=== PATIENT | female | born 1930 | race Caucasian/White ===

== ENCOUNTER 2018-04-04 18:04 | Emergency (ER) | payer MEDICARE ==
[2018-04-04 19:14] LABS: #Eosinphils 0.1 thou/uL (0.0-0.7); #Lymphocytes 1.7 thou/uL (1.20-3.40); #Monocytes 0.5 thou/uL (0.11-0.59); #Neutrophils 3.5 thou/uL (1.40-6.50); %Basophils 0.7 % (0.0-1.0); %Eosinophils 0.9 % (0.0-10.0); %Lymphocytes 29.1 % (21.0-51.0); %Monocytes 8.1 % (0.0-10.0); %Neutrophils 61.2 % (42.0-75.0); Hemoglobin 12.6 g/dL (12.0-16.0); Mean Corpuscular HGB CONC 32.5 g/dL (32.0-36.0); Mean Corpuscular Hemoglobin 31.1 pg (27.0-31.0); Mean Corpuscular Volume 95.6 fL (78.0-98.0); Mean Platelet Volume 7.6 fL (7.4-10.4); Platelet Count 253 thou/uL (130-400); RBC Distribution Width 12.4 % (11.5-14.5); Red Blood Cell (RBC) Count 4.07 mill/uL (4.20-5.40); White Blood Cell (WBC) Count 5.8 thou/uL (4.8-10.8)
[2018-04-04 19:26] LABS: PTT 28.7 SEC (22.9-36.1); Prothrombin Time 13.2 SEC (12.0-14.7)
[2018-04-04 19:39] LABS: ALT (SGPT) 8 U/L (8-55); AST (SGOT) 14 U/L (5-34); Albumin 3.7 g/dL (3.4-4.8); Alkaline Phosphatase 45 U/L (40-150); Anion Gap 12 mmol/L (10-20); BUN (Urea Nitrogen) 23 mg/dL (9.8-20.1); Bilirubin, Total 0.4 mg/dL (0.2-1.2); Calc. Creatinine Clearance 0 mL/min (70-130); Calcium 9.3 mg/dL (7.8-10.44); Carbon Dioxide 27 mmol/L (23-31); Chloride 106 mmol/L (98-107); Estimated GFR-MDRD 38; Globulin 2.8 g/dL (2.4-3.5); Glucose 105 mg/dL (83-110); Potassium 4.7 mmol/L (3.5-5.1); Protein, Total 6.5 g/dL (6.0-8.3); Sodium 140 mmol/L (136-145)
[2018-04-04 19:44] LABS: CKMB 1.4 ng/mL (0-6.6); Troponin I Less than 0.010 ng/mL (< 0.028)
[2018-04-04 20:12] LABS: Bilirubin Negative (Negative); Blood, Urine Negative (Negative); Clarity CLEAR (Clear); Glucose, Urine (Dipstick) Negative (Negative); Leukocyte Moderate (Negative); Nitrite Negative (Negative); Protein, Urine (Dipstick) Negative (Neg-Trace); Specific Gravity, Urine 1.016 (1.002-1.036); pH, Urine 6.5 (5.0-9.0)
[2018-04-04 20:13] LABS: Bacteria/HPF None Seen HPF (None Seen); Hyaline Casts/LPF 0-3 HYALINE CAST LPF (0-3 Hyaline); Pathc Cast-AUWi Flag 0.29 (0-2.49); RBC/HPF 0-3 HPF (0-3); Squamous Epithelial 0-3 HPF (0-3)
--- NOTE | 2018-04-04 20:34 | CT ---
CT OF HEAD NONCONTRAST: 04/04/18 HISTORY: Posttraumatic injury with pain related to fall. FINDINGS: No evidence of acute intracranial hemorrhage, mass effect, midline shift or ventriculomegaly. There i s mild chronic ischemic disease of the cerebral white matter. Calvarium is intact. There is hyperosto sis frontalis interna. IMPRESSION: No acute intracranial hemorrhage or mass effect. POS: LENNOXK
--- NOTE | 2018-04-04 20:39 | CT ---
FACIAL BONE CT NONCONTRAST: 04/04/18 INDICATION: Fall with facial injury. FINDINGS: There is a minimally displaced fracture deformity of the nasal bones bilaterally. Zygomatic arches ar e intact. No displaced fracture of right orbital crawford. There is mild dehiscence involving medial wal l of the left orbit which appears chronic given absence of extraconal fat stranding. There is also a focal defect of the floor of the left orbit without associated extraconal fat stranding. The fracture margins appear corticated. This could relate to a remote injury. Recommend clinical correlation in t his regard (exclude point tenderness at the left orbital floor with physical exam). There is no retro bulbar hematoma or mass effect. [place] intraocular lenses are absent. There is no posttraumatic sublu xation of either temporomandibular joint. 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 Pterygoid plates are intact. IMPRESSION: 1. Minimally displaced nasal bone fractures. 2. Deformities of the left orbital rim, as described above. Correlate clinically. POS: SOCRATES
--- NOTE | 2018-04-04 20:41 | CT ---
CERVICAL SPINE CT NONCONTRAST: 04/04/18 INDICATION: Fall with neck injury and pain. FINDINGS: The craniocervical junction reveals no evidence of acute distraction injury. There is multilevel dege nerative change without acute fracture. There is mild reversal of normal cervical curvature, likely d egenerative. Contents of vertebral canal limit assessment by noncontrast CT imaging. IMPRESSION: Multilevel degenerative change cervical spine without an acute fracture visualized. POS: SOCRATES
== END 2018-04-04 20:38 | disposition home or self-care (01) ==
LOC: ERS 18:04
DX: S02.2XXA Fracture of nasal bones, initial encounter for closed fracture (principal); S00.83XA Contusion of other part of head, initial encounter; N39.0 Urinary tract infection, site not specified; I10 Essential (primary) hypertension; E03.9 Hypothyroidism, unspecified; F41.9 Anxiety disorder, unspecified; F32.9 Major depressive disorder, single episode, unspecified; F03.90 Unspecified dementia, unspecified severity, without behavioral disturbance, psychotic disturbance, mood disturbance, and anxiety; R29.6 Repeated falls; Z79.899 Other long term (current) drug therapy; Z79.82 Long term (current) use of aspirin; W18.30XA Fall on same level, unspecified, initial encounter
CPT/HCPCS: 36415; 70450; 70486; 72125; 80053; 81003; 81015; 82553; 84484; 85025; 85610; 85730; 87086; 93005

== ENCOUNTER 2018-07-17 12:57 | Emergency (ER) | payer MEDICARE ==
[2018-07-17 13:37] LABS: Bilirubin Moderate (Negative); Blood, Urine Negative (Negative); Clarity CLEAR (Clear); Glucose, Urine (Dipstick) Negative (Negative); Leukocyte Small (Negative); Nitrite Negative (Negative); Protein, Urine (Dipstick) Trace mg/dL (Neg-Trace); Specific Gravity, Urine 1.035 (1.002-1.036); pH, Urine 5.5 (5.0-9.0)
[2018-07-17 13:40] LABS: #Eosinphils 0.1 thou/uL (0.0-0.7); #Monocytes 0.9 thou/uL (0.11-0.59); #Neutrophils 6.2 thou/uL (1.40-6.50); %Basophils 0.3 % (0.0-1.0); %Eosinophils 0.9 % (0.0-10.0); %Lymphocytes 21.9 % (21.0-51.0); %Monocytes 9.3 % (0.0-10.0); %Neutrophils 67.6 % (42.0-75.0); Hemoglobin 13.2 g/dL (12.0-16.0); Mean Corpuscular HGB CONC 32.6 g/dL (32.0-36.0); Mean Corpuscular Hemoglobin 32.4 pg (27.0-31.0); Mean Corpuscular Volume 99.4 fL (78.0-98.0); Mean Platelet Volume 8.4 fL (7.4-10.4); Platelet Count 210 thou/uL (130-400); RBC Distribution Width 11.8 % (11.5-14.5); Red Blood Cell (RBC) Count 4.08 mill/uL (4.20-5.40); White Blood Cell (WBC) Count 9.2 thou/uL (4.8-10.8)
[2018-07-17 13:40] LABS: Bacteria/HPF None Seen HPF (None Seen); RBC/HPF 0-3 HPF (0-3)
[2018-07-17 13:59] LABS: Hyaline Casts/LPF 4-6 HYALINE CAST LPF (0-3 Hyaline); Manual Microscopic Reviewed? No Path Casts Seen; Renal Epithelial None Seen HPF (0-3); Transitional Epithelial NONE SEEN HPF (0-3)
[2018-07-17 14:00] LABS: ALT (SGPT) Less than 7 U/L (8-55); AST (SGOT) 13 U/L (5-34); Albumin 3.7 g/dL (3.4-4.8); Alkaline Phosphatase 52 U/L (40-150); Anion Gap 10 mmol/L (10-20); BUN (Urea Nitrogen) 24 mg/dL (9.8-20.1); Bilirubin, Total 0.3 mg/dL (0.2-1.2); Calc. Creatinine Clearance 0 mL/min (70-130); Calcium 9.7 mg/dL (7.8-10.44); Carbon Dioxide 31 mmol/L (23-31); Chloride 104 mmol/L (98-107); Estimated GFR-MDRD 37; Glucose 84 mg/dL (83-110); Potassium 4.3 mmol/L (3.5-5.1); Protein, Total 6.7 g/dL (6.0-8.3); Sodium 141 mmol/L (136-145)
--- NOTE | 2018-07-17 15:00 | RAD ---
PORTABLE CHEST: DATE: 07/17/2018. PROVIDED CLINICAL HISTORY: Cough. FINDINGS: Comparison 06/10/2011. The cardiac silhouette is within normal limits. Vascular calcification is see n. Median sternotomy changes are noted. Left subclavian cardiac pacing device is demonstrated with the tips overlying expected locations of RA and RV. There is a linear probably metallic density over lying the central aspects of the base of the neck and sternal region presumably external to the patie nt. No focal consolidation, pleural fluid, or pneumothorax apparent. IMPRESSION: No definite evidence for an acute cardiopulmonary process. POS: TPC
[2018-07-17] MEDS ORDERED: Azithromycin 500 MG VIAL ONE (15:27)
== END 2018-07-17 17:07 | disposition home or self-care (01) ==
LOC: ERS 12:57
DX: J20.9 Acute bronchitis, unspecified (principal); I10 Essential (primary) hypertension; E03.9 Hypothyroidism, unspecified; F41.9 Anxiety disorder, unspecified; F32.9 Major depressive disorder, single episode, unspecified; Z79.899 Other long term (current) drug therapy; Z79.891 Long term (current) use of opiate analgesic; Z79.82 Long term (current) use of aspirin
CPT/HCPCS: 51701; 71045; 80053; 81003; 81015; 85025; 87086; 93005; 94640; 96365; A4353; J0456; J7620

== ENCOUNTER 2018-07-27 09:43 | Inpatient (IN) | payer MEDICARE ==
[2018-07-27 10:36] LABS: #Lymphocytes 1.8 thou/uL (1.20-3.40); #Monocytes 0.5 thou/uL (0.11-0.59); %Basophils 0.1 % (0.0-1.0); %Eosinophils 0.6 % (0.0-10.0); %Lymphocytes 28.1 % (21.0-51.0); %Neutrophils 63.2 % (42.0-75.0); Hemoglobin 13.9 g/dL (12.0-16.0); Mean Corpuscular HGB CONC 32.2 g/dL (32.0-36.0); Mean Corpuscular Hemoglobin 31.2 pg (27.0-31.0); Mean Corpuscular Volume 96.8 fL (78.0-98.0); Mean Platelet Volume 8.2 fL (7.4-10.4); Platelet Count 222 thou/uL (130-400); RBC Distribution Width 11.9 % (11.5-14.5); Red Blood Cell (RBC) Count 4.47 mill/uL (4.20-5.40); White Blood Cell (WBC) Count 6.3 thou/uL (4.8-10.8)
--- NOTE | 2018-07-27 10:43 | RAD ---
PORTABLE CHEST 1 VIEW: Date; 07/27/18 Time: 0937 hours HISTORY: Chest pain. FINDINGS: Comparison made with exam of 07/17/18. The heart size is normal. Changes of median sternotomy are again seen. Left-sided pacemaker device re asa in place. The lungs are well expanded without focal areas of consolidation, pneumothoraces, or pleural effusions. IMPRESSION: No radiographic evidence of acute cardiopulmonary process. POS: STACIAH
[2018-07-27 11:04] LABS: ALT (SGPT) 12 U/L (8-55); AST (SGOT) 27 U/L (5-34); Albumin 3.7 g/dL (3.4-4.8); Alkaline Phosphatase 47 U/L (40-150); Anion Gap 17 mmol/L (10-20); BUN (Urea Nitrogen) 22 mg/dL (9.8-20.1); Bilirubin, Total 0.3 mg/dL (0.2-1.2); Calc. Creatinine Clearance 0 mL/min (70-130); Calcium 9.5 mg/dL (7.8-10.44); Carbon Dioxide 23 mmol/L (23-31); Chloride 102 mmol/L (98-107); Estimated GFR-MDRD 51; Globulin 2.8 g/dL (2.4-3.5); Glucose 97 mg/dL (83-110); Protein, Total 6.5 g/dL (6.0-8.3); Sodium 137 mmol/L (136-145)
--- NOTE | 2018-07-27 11:06 | CT ---
CT BRAIN WITHOUT CONTRAST: Date: 07/27/18 HISTORY: Headache. Dizziness. FINDINGS: Comparison made with exam of 04/04/18. Changes of mild chronic small vessel ischemic disease are again seen. The ventricular size is stable and the basilar cisterns are patent. No evidence of acute infarct, hemorrhage, midline shift, or abno rmal extra-axial fluid collections are seen. The bony calvarium is intact. Changes of hyperostosis fr ontalis interna are again seen. The visualized paranasal sinuses and mastoid air cells are well aerat ed. IMPRESSION: No CT evidence of acute intracranial process. POS: H
--- NOTE | 2018-07-27 11:15 | CT ---
CT ANGIO OF CHEST AND ABDOMEN PERFORMED WITH IV CONTRAST ENHANCEMENT AND 3D RECONSTRUCTIONS: Date: 07/27/18 HISTORY: Chest pain, onset this morning. This examination was done per the aortic dissection protocol. FINDINGS: The lungs are clear of any infiltrative process. There are no pleural effusions noted. There are mini mal atelectatic changes in the lung bases. There is no significant mediastinal, hilar, or axillary adenopathy noted. The thoracic aorta shows atherosclerotic change. There is no aneurysm or dissection. Postop sternotom y changes are present. CT angio of abdomen was performed with contrast. The liver, spleen, and pancreas regions appear unrem arkable. Gallbladder is not identified. Right and left adrenal glands are normal in appearance. The right kidney is normal in size. The left kidney is atrophic, measuring approximately 6.4 cm in length. There is cortical scarring involving th e upper pole. There are hypodensities involving both kidneys, most of which are too small to characte rize. There is one exophytic lesion involving the left kidney measuring 2.[address] Hounsfield unit number is higher than typical for a simple cyst, but could represent a hemorrhagic cyst. There is no significant periaortic or mesenteric adenopathy. The abdominal aorta shows atheroscleroti c change. There is some minimal ectasia to the more distal aorta, but is not aneurysmal. No dissectio n. There is a moderately severe stenosis of the origin of the right renal artery. There is dense plaq ue formation and stent noted on the left side. Review of osseous structures show arthritic changes of the spine. There is some loss of vertebral bod y height of some of the mid thoracic vertebral bodies, probably on the basis of osteoporosis. IMPRESSION: 1. No evidence of aortic aneurysm or dissection. 2. Moderately severe stenosis of the right renal artery. 3. Moderate atrophy of the left kidney. There is a left renal artery stent in place. 4. Hypodensities involving both kidneys, most of which are too small to characterize. There is sone larger exophytic lesion along the posterior cortex of the atrophic left kidney measuring 2.2 cm[address] It h as CT Hounsfield unit numbers higher than typical for a cyst, although this may still represent a hem orrhagic cyst. Ultrasound may be helpful in characterization. 5. Minimal left-sided colonic diverticulosis. POS: TPC
[2018-07-27] MEDS ORDERED: Nitroglycerin 2% Ointment 1 INCH/1 GM Packet ONE (11:52)
[2018-07-27] MEDS ORDERED: ISOVUE-370 76%-LOCM 1 ML ONE (12:03)
[2018-07-27 12:07] LABS: Bilirubin Small (Negative); Blood, Urine Trace (Negative); Clarity CLEAR (Clear); Glucose, Urine (Dipstick) Negative (Negative); Leukocyte Small (Negative); Nitrite Negative (Negative); Protein, Urine (Dipstick) Negative (Neg-Trace); Urobilinogen 0.2 mg/dL (0.2-1.0)
[2018-07-27 12:09] LABS: Bacteria/HPF 4+ HPF (None Seen); Hyaline Casts/LPF 4-6 HYALINE CAST LPF (0-3 Hyaline); Pathc Cast-AUWi Flag 0.27 (0-2.49); Squamous Epithelial 0-3 HPF (0-3)
[2018-07-27 12:10] LABS: Specific Gravity, Urine 1.059 (1.002-1.036)
[2018-07-27] MEDS ORDERED: cefTRIAXone\\ROCEPHIN 1 GM VIAL ONE (12:29)
[2018-07-27] MEDS ORDERED: Amiodarone 450 MG, Admixture Fee 1 EACH in Dextrose 5% in Water 250 ML IVPB SCH (13:30)
[2018-07-27] MEDS ORDERED: Amiodarone 150 MG/3 ML VIAL IVP SCH (13:30)
[2018-07-27] MEDS ORDERED: Amiodarone 150 MG/3 ML VIAL ONE (13:42)
--- NOTE | 2018-07-27 16:50 | HP ---
PRIMARY CARE PROVIDER: Cruz Esquivel MD. COMPLAINT: Chest pain and altered mental status. HISTORY OF PRESENT ILLNESS: This is an 88-year-old female, who presents to [facility] Emergency Department with her son, who provides the majority of the history as the patient has advancing dementia and confusion. The son reports that he has noticed his mother with increasing confusion and worsening dementia over the last several days. The patient also has been noted with decreased ambulation, general weakness, and decreased appetite. The patient states she has had some intermittent chest pain symptoms in the center of her chest, sharp in nature, intermittent with some dizziness. The family reports that the patient has had difficulty ambulating and is supposed to use a rolling walker, however, is noncompliant with this and has had intermittent falls. The patient typically is in her bed or in a chair most of the day and needs assistance with short distance ambulation and meal preparation. The patient was recently evaluated by her primary care provider and apparently had an increase in her levothyroxine dosing as well as the addition of albuterol inhaler. The patient overall has been compliant with her chronic medication regimen per family report. The family reports the patient has had the pacemaker device in place over the last 10 to 15 years and had the generator replaced in the last 2 years. Per family report, the device has been working appropriately when checked at varying intervals. The patient currently denies any nausea, vomiting, or diarrhea. The patient denies any unilateral weakness. The patient does admit that she is currently wishing to eat. In the emergency room, the patient underwent general evaluation including metabolic survey showing essentially negative findings. Urinalysis was positive for suspected urinary tract infection. At which point, the patient received IV Rocephin 1 g and transdermal nitroglycerin. During the ER evaluation, telemetry monitoring showed nonsustained short run of ventricular tachycardia, which the patient was unaware of. The patient was placed on IV amiodarone in the emergency room and currently remains in a paced rhythm. PAST MEDICAL HISTORY: 1. Hypothyroidism. 2. Hyperlipidemia. 3. Hypertension. 4. Sick sinus syndrome. 5. Coronary artery disease. 6. Deconditioning. 7. History of falls. 8. Dementia, likely Alzheimer's type. PAST SURGICAL HISTORY: 1. Status post pacemaker placement with generator change two years prior to this evaluation. 2. Status post hysterectomy. 3. Status post coronary artery bypass. CURRENT MEDICATIONS: 1. Levothyroxine. 2. Alprazolam. 3. Pravachol. 4. Amlodipine. 5. Divalproex. 6. Donepezil, doses need to be confirmed with family members. ALLERGIES: CODEINE, SULFATE, AND FLUCONAZOLE. FAMILY HISTORY: Positive for coronary artery disease and hypertension. SOCIAL HISTORY: The patient is and accompanied by her son and grandson in the emergency department. No current alcohol, tobacco, or illicit drug use. Minimally ambulatory with occasional use of a rolling walker. History of falls. REVIEW OF SYSTEMS: CONSTITUTIONAL: Negative for weight loss or gain, ability to conduct usual activities. SKIN: Negative for rash, itching. EYES: Negative for double vision, pain. ENT/MOUTH: Negative for nose bleeding, neck stiffness, pain, tenderness. CARDIOVASCULAR: Negative for palpitations, dyspnea on exertion, orthopnea. RESPIRATORY: Negative for shortness of breath, wheezing, cough, hemoptysis, fever or night sweats. GASTROINTESTINAL: Negative for poor appetite, abdominal pain, heartburn, nausea, vomiting, constipation, or diarrhea. GENITOURINARY: Negative for urgency, frequency, dysuria, nocturia. MUSCULOSKELETAL: Negative for pain, swelling. NEUROLOGIC/PSYCHIATRIC: Negative for anxiety, depression. ALLERGY/IMMUNOLOGIC: Negative for skin rash, bleeding tendency. Otherwise, negative except as stated per HPI. PHYSICAL EXAMINATION: VITAL SIGNS: On admission, blood pressure 188/77, pulse 71, respiratory rate is 14, temperature 97.6 degrees Fahrenheit, and O2 saturation 99% on room air. GENERAL APPEARANCE: This is an 88-year-old female, alert and oriented x2, pleasant, smiling, in no acute distress. HEENT: Pupils are equal, round, reactive to light and accommodation. Extraocular muscles are intact. No scleral icterus. No conjunctival injection. Nares patent. OP is clear. Teeth in fair repair. NECK: Supple. No cervical adenopathy. No thyromegaly. No carotid bruits. No JVD appreciated. Cervical spine with full active and passive range of motion. No meningeal signs noted. CHEST: Lungs are clear to auscultation bilaterally CARDIOVASCULAR: S1 and S2 without noted murmur, rub, or gallop. Left upper chest wall with pacemaker device in place. No fluctuance or erythema noted. ABDOMEN: Obese, soft, nontender, and nondistended. Bowel sounds are positive in all 4 quadrants. No hepatosplenomegaly. No abdominal bruits. No rebound or guarding appreciated. EXTREMITIES: Warm and dry with fair turgor. No clubbing, cyanosis, or asymmetric edema appreciated. Pulses are palpable distally at the dorsalis pedis, posterior tibial, and popliteal arteries bilaterally. Capillary refill less than 2 seconds. NEUROLOGIC: Cranial nerves 2 through 12 are grossly intact. No focal or lateralizing signs appreciated. Alert and oriented x2. PERTINENT LABORATORY DATA AND X-RAY FINDINGS: Basic metabolic profile within normal limits. Troponin I negative x2. BNP 136. TSH 2.47. CBC within normal limits. Portable chest x-ray dated 07/27/2018, showed no acute cardiopulmonary process. CT of the brain without contrast dated 07/27/2018, showed no acute intracranial process. CT of the chest and abdomen with dissection protocol showed no evidence for aneurysm or dissection. Moderately severe stenosis of the right renal artery. Moderate atrophy of the left kidney. EKG dated 07/27/2018, showed paced rhythm with heart rate in the 70s. ASSESSMENT AND PLAN: 1. Urinary tract infection. The patient will be admitted to the telemetry unit. We will continue Rocephin 2 g IV q.24 hours. Urine culture pending. Continue IV fluids with normal saline at 100 mL/h. 2. Acute metabolic encephalopathy secondary to urinary tract infection. We will continue supportive management as outlined at #1. Reorientation techniques. Anticipate improvement with resolution of infectious process. 3. Nonsustained ventricular tachycardia. We will continue amiodarone IV currently. Consult Cardiology Service for any further recommendations and medication titration. Check magnesium level and 2D transthoracic echocardiogram in the a.m. 4. Dementia likely Alzheimer's type. We will continue general supportive management. Reorientation techniques. Sitter for one-on-one if family unavailable. Resume donepezil. 5. Deconditioning. We will obtain PT evaluation for functional assessment. General fall risk precautions. [facility] facility options. 6. Prophylaxis. SCDs while in bed. Pepcid 20 mg p.o. b.i.d. General fall risk precautions. 7. Code status is full. Surrogate medical decision maker is the patient's son. Job ID: [id number]
[2018-07-27 17:11] LABS: Troponin I Less than 0.010 ng/mL (< 0.028)
[2018-07-27] MEDS ORDERED: Ondansetron PF 4 MG/2 ML Vial IVP PRN (19:56)
[2018-07-27] MEDS ORDERED: Ondansetron ODT 4 MG TAB PO PRN (19:56)
[2018-07-27] MEDS: Famotidine 20 MG TAB PO SCH (21:46)
[2018-07-27] MEDS: Sodium Chloride 0.9% 1,000 ML IV SCH (21:47)
[2018-07-27 21:53] VITALS: BMI 32.3
[2018-07-27] MEDS ORDERED: Donepezil HCl 10 MG TAB PO SCH (23:00)
[2018-07-27] MEDS ORDERED: Pravastatin Sodium 20 MG TAB PO SCH (23:00)
[2018-07-27] MEDS: ALPRAZolam 0.25 MG TAB PO PRN (23:46)
[2018-07-28] MEDS: Levothyroxine Sodium 50 MCG TAB PO SCH (05:51)
[2018-07-28 06:11] LABS: ALT (SGPT) 8 U/L (8-55); AST (SGOT) 14 U/L (5-34); Albumin 3.3 g/dL (3.4-4.8); Alkaline Phosphatase 44 U/L (40-150); Anion Gap 10 mmol/L (10-20); BUN (Urea Nitrogen) 20 mg/dL (9.8-20.1); Bilirubin, Total 0.3 mg/dL (0.2-1.2); Calc. Creatinine Clearance 65 mL/min (70-130); Calcium 8.9 mg/dL (7.8-10.44); Carbon Dioxide 29 mmol/L (23-31); Chloride 104 mmol/L (98-107); Estimated GFR-MDRD 58; Globulin 2.3 g/dL (2.4-3.5); Glucose 91 mg/dL (83-110); Magnesium 1.9 mg/dL (1.6-2.6); Potassium 4.2 mmol/L (3.5-5.1); Protein, Total 5.6 g/dL (6.0-8.3); Sodium 139 mmol/L (136-145)
[2018-07-28 06:33] LABS: Band 4 % (5-11); Hemoglobin 12.6 g/dL (12.0-16.0); Lymphocytes 24 % (21-51); MDiff Complete? YES; Mean Corpuscular HGB CONC 33.1 g/dL (32.0-36.0); Mean Corpuscular Hemoglobin 31.9 pg (27.0-31.0); Mean Corpuscular Volume 96.6 fL (78.0-98.0); Mean Platelet Volume 8.4 fL (7.4-10.4); Monocytes 3 % (0-10); Neutrophil 69 % (42-75); Platelet Count 186 thou/uL (130-400); Red Blood Cell (RBC) Count 3.95 mill/uL (4.20-5.40); White Blood Cell (WBC) Count 8.5 thou/uL (4.8-10.8)
[2018-07-28] MEDS: Famotidine 20 MG TAB PO SCH ×2 (09:55→19:49)
[2018-07-28] MEDS: Amlodipine 5 MG TAB PO SCH (09:55)
[2018-07-28] MEDS: Sodium Chloride 0.9% 1,000 ML IV SCH (09:55)
[2018-07-28] MEDS: Acetaminophen 500 MG TAB PO PRN (09:55)
--- NOTE | 2018-07-28 13:44 | CON ---
DATE OF CONSULTATION: HISTORY OF PRESENT ILLNESS: The patient is an 88-year-old woman, who presented with altered mental status. The patient has a long history of coronary artery disease. She is status post coronary bypass graft surgery in 2007. She also has had placement of electronic pacemaker. The patient suffers from dementia. She was admitted apparently with altered mental status. She was noted to have a rapid heart rate on her telemetry monitoring. The patient denies having any chest discomfort or palpitations. PAST MEDICAL HISTORY: 1. Coronary artery disease. 2. Hypertension. 3. Dyslipidemia. 4. Dementia. PAST SURGICAL HISTORY: Hysterectomy and coronary artery bypass surgery. MEDICATIONS: See nursing list. ALLERGIES: CODEINE, SULFATE, AND FLUCONAZOLE. SOCIAL HISTORY: Lives with her son. REVIEW OF SYSTEMS: Unremarkable. PHYSICAL EXAMINATION: GENERAL: Well-developed, obese woman, alert, and oriented x1. VITAL SIGNS: Blood pressure of 146/65. NECK: Showed no jugular venous distention. LUNGS: Clear to auscultation. HEART: Regular rate and rhythm. Normal S1 and S2 with a 2/6 systolic murmur. ABDOMEN: Distended. EXTREMITIES: Showed trace edema. LABORATORY DATA: Sodium 139, potassium 4.2, chloride 104, bicarbonate 29, BUN 20, creatinine 0.91. Troponin less than 0.01. BNP 135. White blood cell count 8.5 , hemoglobin 12.6, hematocrit 38.2, and platelets 186. EKG revealed an electronic atrial pacemaker with no acute ST-T wave changes. Telemetry monitoring revealed a wide pacemaker mediated tachycardia. IMPRESSION: 1. Altered mental status. 2. Possible pacemaker mediated tachycardia. 3. History of coronary artery bypass surgery. 4. Hypertension. 5. Dementia. 6. History of renal artery stenosis. PLAN: This patient presented with altered mental status. From a cardiac standpoint, I do not believe this is ventricular tachycardia. We will interrogate the patient's pacemaker. We will discontinue the amiodarone. We will follow this patient with you through her hospitalization. Job ID: [id number] [facility]
[2018-07-28] MEDS: cefTRIAXone\\ROCEPHIN 2 GM in Sodium Chloride 0.9% 100 ML IVPB SCH (15:07)
--- NOTE | 2018-07-28 15:42 | PDOC.PN ---
- Subjective Encounter Start Date: 07/28/18 Encounter Start Time: 15:40 Subjective: feels OK. denies any discomfort but just weak - Objective Resuscitation Status - Order Detail: 07/28/18 15:39 Resuscitation Status Routine Resuscitation Status: PRTL: Chem only Discussed with: as per palliative care team's discussion w son MAHESH Reviewed: Yes Vital Signs & Weight: Vital Signs (12 hours) Temp Pulse Pulse Resp BP BP BP 07/28/18 14:16 74 182/72 H 168/73 H 07/28/18 11:41 97.5 F L 73 16 146/65 H 07/28/18 08:00 97.5 F L 73 18 175/75 H 07/28/18 03:45 97.6 F 70 12 BP Pulse Ox 07/28/18 14:16 07/28/18 11:41 96 07/28/18 08:00 97 07/28/18 03:45 151/69 H 94 L Weight Weight 212 lb 9.6 oz I&O: 07/27/18 07/28/18 07/29/18 06:59 06:59 06:59 Intake Total 1381 Output Total 500 Balance 881 Result Diagrams: 07/28/18 05:21 07/28/18 05:21 Additional Labs: Microbiology 07/17/18 13:11 Urine Straight Catheter Urine Culture - Final Gram Negative [facility] Laboratory Tests 07/27/18 07/27/18 07/27/18 10:23 10:23 10:23 Troponin I 0.010 B-Natriuretic Peptide 135.8 H TSH 3rd Generation 2.4663 07/27/18 07/27/18 13:34 16:31 Troponin I 0.014 Less than 0.010 B-Natriuretic Peptide TSH 3rd Generation Phys Exam - Physical Examination Constitutional: NAD HEENT: PERRLA, moist MMs, sclera anicteric, oral pharynx no lesions Neck: no nodes, no JVD, supple, full ROM Respiratory: no wheezing, no rales, no rhonchi, clear to auscultation bilateral Cardiovascular: RRR, no significant murmur, no rub Gastrointestinal: soft, non-tender, no distention, positive bowel sounds Musculoskeletal: no edema, pulses present Neurological: non-focal, normal sensation, moves all 4 limbs Psychiatric: normal affect Deviation from normal: orineted to self and person Skin: no rash Dx/Plan (1) UTI (urinary tract infection) Status: Acute (2) Acute metabolic encephalopathy Code(s): G93.41 - METABOLIC ENCEPHALOPATHY Status: Acute Comment: due to #1 (3) NSVT (nonsustained ventricular tachycardia) Code(s): I47.2 - VENTRICULAR TACHYCARDIA Status: Resolved (4) Dementia Code(s): F03.90 - UNSPECIFIED DEMENTIA WITHOUT BEHAVIORAL DISTURBANCE Status: Chronic (5) CAD (coronary artery disease) Code(s): I25.10 - ATHSCL HEART DISEASE OF [place] CORONARY ARTERY W/O ANG PCTRS Status: Chronic (6) Pacemaker Code(s): Z95.0 - PRESENCE OF CARDIAC PACEMAKER Status: Chronic - Plan DVT proph w/SCDs stop amiodarone. no arrythmia.PPM interrogation -: cont ABx. Follow Cx results.IVF -: HD stable -: am labs * . Review of Systems - Review of Systems Constitutional: weakness. negative: fever, chills, sweats, malaise, other Respiratory: negative: Cough, Dry, Shortness of Breath, Hemoptysis, SOB with Excertion, Pleuritic Pain, Sputum, Wheezing Cardiovascular: negative: chest pain, palpitations, orthopnea, paroxysmal nocturnal dyspnea, edema, light headedness, other Gastrointestinal: negative: Nausea, Vomiting, Abdominal Pain, Diarrhea, Constipation, Melena, Hematochezia, Other Genitourinary: negative: Dysuria, Frequency, Incontinence, Hematuria, Retention , Other Neurological: negative: Weakness, Numbness, Incoordination, Change in Speech, Confusion, Seizures, Other - Medications/Allergies Allergies/Adverse Reactions: Allergies Allergy/AdvReac Type Severity Reaction Status Date / Time codeine Allergy Verified 07/27/18 13:22 fluconazole Allergy Verified 07/27/18 13:22 Medications: Current Medications Acetaminophen (Tylenol) 1,000 mg PO Q6H PRN PRN Reason: Mild Pain (1-3) Last Admin: 07/28/18 09:55 Dose: 1,000 mg Alprazolam (Xanax) 0.25 mg PO TID PRN PRN Reason: Anxiety Last Admin: 07/27/18 23:46 Dose: 0.25 mg Amlodipine Besylate (Norvasc) 5 mg PO DAILY CHUY Last Admin: 03/15/19 09:55 Dose: 5 mg Divalproex Sodium (Depakote Er) 500 mg PO HS [facility] Donepezil HCl (Aricept) 10 mg PO HS [facility] Famotidine (Pepcid) 20 mg PO BID [facility] Last Admin: 07/28/18 09:55 Dose: 20 mg Hydralazine HCl (Apresoline) 10 mg SLOW IVP Q4H PRN PRN Reason: SBP > 180 and HR < 70 Ceftriaxone Sodium 2 gm/ (Sodium Chloride) 100 mls @ 200 mls/hr IVPB 1300 [facility] Last Admin: 07/28/18 15:07 Dose: 100 mls Levothyroxine Sodium (Synthroid) 50 mcg PO 0600 [facility] Last Admin: 07/28/18 05:51 Dose: 50 mcg Ondansetron HCl (Zofran Odt) 4 mg PO Q6H PRN PRN Reason: Nausea/Vomiting Ondansetron HCl (Zofran) 4 mg IVP Q6H PRN PRN Reason: Nausea/Vomiting Pravastatin Sodium (Pravachol) 20 mg PO HS [facility] Sertraline HCl (Zoloft) 100 mg PO DAILY [facility] Last Admin: 07/28/18 09:55 Dose: 100 mg
[2018-07-28] MEDS ORDERED: Amlodipine 5 MG TAB PO SCH (15:43)
[2018-07-28] MEDS ORDERED: ALPRAZolam 0.25 MG TAB PO PRN (15:43)
[2018-07-28] MEDS: hydrALAZINE 20 MG/ML VIAL SLOW IVP PRN (16:10)
[2018-07-28] MEDS: Donepezil HCl 10 MG TAB PO SCH (19:49)
[2018-07-28] MEDS: Pravastatin Sodium 20 MG TAB PO SCH (19:49)
[2018-07-28] MEDS: ALPRAZolam 0.25 MG TAB PO PRN (20:53)
[2018-07-28] MEDS ORDERED: Pravastatin Sodium 20 MG TAB PO SCH (21:00)
[2018-07-28] MEDS ORDERED: Donepezil HCl 10 MG TAB PO SCH (21:00)
[2018-07-29] MEDS: Levothyroxine Sodium 50 MCG TAB PO SCH (05:23)
[2018-07-29 06:30] LABS: #Eosinphils 0.1 thou/uL (0.0-0.7); #Lymphocytes 2.4 thou/uL (1.20-3.40); #Monocytes 0.6 thou/uL (0.11-0.59); #Neutrophils 5.1 thou/uL (1.40-6.50); %Basophils 0.3 % (0.0-1.0); %Eosinophils 0.7 % (0.0-10.0); %Lymphocytes 29.2 % (21.0-51.0); %Monocytes 7.6 % (0.0-10.0); %Neutrophils 62.3 % (42.0-75.0); Hemoglobin 13.3 g/dL (12.0-16.0); Mean Corpuscular HGB CONC 32.7 g/dL (32.0-36.0); Mean Corpuscular Hemoglobin 31.8 pg (27.0-31.0); Mean Corpuscular Volume 97.2 fL (78.0-98.0); Mean Platelet Volume 8.4 fL (7.4-10.4); Platelet Count 205 thou/uL (130-400); RBC Distribution Width 12.3 % (11.5-14.5); Red Blood Cell (RBC) Count 4.17 mill/uL (4.20-5.40); White Blood Cell (WBC) Count 8.3 thou/uL (4.8-10.8)
[2018-07-29 06:48] LABS: Anion Gap 11 mmol/L (10-20); BUN (Urea Nitrogen) 15 mg/dL (9.8-20.1); Calc. Creatinine Clearance 61 mL/min (70-130); Calcium 9.1 mg/dL (7.8-10.44); Carbon Dioxide 27 mmol/L (23-31); Chloride 102 mmol/L (98-107); Estimated GFR-MDRD 54; Glucose 100 mg/dL (83-110); Potassium 3.9 mmol/L (3.5-5.1); Sodium 136 mmol/L (136-145)
[2018-07-29] MEDS ORDERED: Levothyroxine Sodium 50 MCG TAB PO SCH (09:00)
[2018-07-29] MEDS: Amlodipine 5 MG TAB PO SCH (09:48)
[2018-07-29] MEDS: Acetaminophen 500 MG TAB PO PRN (09:48)
[2018-07-29] MEDS: Famotidine 20 MG TAB PO SCH ×2 (09:48→19:44)
--- NOTE | 2018-07-29 11:50 | PDOC.PN ---
- Subjective Encounter Start Date: 07/29/18 Encounter Start Time: 10:48 Subjective: No new problem. Denied chest pain or dysuria -: Afebrile. - Objective Resuscitation Status - Order Detail: 07/28/18 15:39 Resuscitation Status Routine Resuscitation Status: PRTL: Chem only Discussed with: as per palliative care team's discussion w son Vital Signs & Weight: Vital Signs (12 hours) Temp Pulse Resp BP Pulse Ox 07/29/18 09:52 97.8 F 69 16 176/73 H 97 07/29/18 04:00 98.0 F 70 16 145/65 H 97 07/29/18 00:00 98.6 F 70 16 136/62 97 Weight Weight 212 lb 9.6 oz I&O: 07/28/18 07/29/18 07/30/18 06:59 06:59 06:59 Intake Total 1381 1870 Output Total 500 920 Balance 881 950 Result Diagrams: 07/29/18 06:19 07/29/18 06:19 Phys Exam - Physical Examination elderly female in no distress. afebrile. HEENT: PERRLA, moist MMs Neck: no JVD, supple Respiratory: no wheezing, no rales, no rhonchi, clear to auscultation bilateral Cardiovascular: RRR Gastrointestinal: soft, no distention, positive bowel sounds Musculoskeletal: no edema, pulses present Neurological: non-focal, moves all 4 limbs Conversation. memory lapses noted Deviation from normal: Oriented to person and place at least Dx/Plan (1) Hypothyroidism Code(s): E03.9 - HYPOTHYROIDISM, UNSPECIFIED Status: Acute (2) SSS (sick sinus syndrome) Code(s): I49.5 - SICK SINUS SYNDROME Status: Acute (3) Frequent falls Code(s): R29.6 - REPEATED FALLS Status: Acute (4) Physical deconditioning Code(s): R53.81 - OTHER [place] Status: Acute (5) Acute metabolic encephalopathy Code(s): G93.41 - METABOLIC ENCEPHALOPATHY Status: Acute Comment: due to #1 (6) UTI (urinary tract infection) Status: Acute (7) CAD (coronary artery disease) Code(s): I25.10 - ATHSCL HEART DISEASE OF [place] CORONARY ARTERY W/O ANG PCTRS Status: Chronic (8) Dementia Code(s): F03.90 - UNSPECIFIED DEMENTIA WITHOUT BEHAVIORAL DISTURBANCE Status: Chronic (9) NSVT (nonsustained ventricular tachycardia) Code(s): I47.2 - VENTRICULAR TACHYCARDIA Status: Resolved - Plan Continue IV antibiotics. -: continue other usual home medications -: Awaiting Echo report. -: cardiology following Re tachyarrhythmia -: Continue PT/OT. Case mgt consulted re discharge planning/placement * .
[2018-07-29] MEDS: cefTRIAXone\\ROCEPHIN 2 GM in Sodium Chloride 0.9% 100 ML IVPB SCH (13:11)
--- NOTE | 2018-07-29 16:35 | EKG ---
Test Reason : Blood Pressure : / mmHG Vent. Rate : 072 BPM Atrial Rate : 073 BPM P-R Int : 000 ms QRS Dur : 072 ms QT Int : 414 ms P-R-T Axes : 000 011 029 degrees QTc Int : 453 ms Electronic atrial pacemaker Confirmed by DENNY RAMIREZ DO ([id number]), web content editor ASAEL JUAREZ ([id number]) on 07/29/2018 4:34:41 PM Referred By: Confirmed By:DENNY RAMIREZ DO
--- NOTE | 2018-07-29 16:35 | EKG ---
Test Reason : Blood Pressure : / mmHG Vent. Rate : 070 BPM Atrial Rate : 070 BPM P-R Int : 124 ms QRS Dur : 080 ms QT Int : 440 ms P-R-T Axes : 008 023 036 degrees QTc Int : 475 ms Electronic atrial pacemaker Confirmed by DENNY RAMIREZ DO ([id number]), information clerk [employer] ASAEL JUAREZ ([id number]) on 07/29/2018 4:34:56 PM Referred By: Confirmed By:DENNY RAMIREZ DO
[2018-07-29] MEDS: hydrALAZINE 20 MG/ML VIAL SLOW IVP PRN (17:48)
[2018-07-29] MEDS: Donepezil HCl 10 MG TAB PO SCH (19:43)
[2018-07-29] MEDS: ALPRAZolam 0.25 MG TAB PO PRN (19:43)
[2018-07-29] MEDS: Pravastatin Sodium 20 MG TAB PO SCH (19:44)
[2018-07-30] MEDS: Levothyroxine Sodium 50 MCG TAB PO SCH (05:25)
[2018-07-30] MEDS: ALPRAZolam 0.25 MG TAB PO PRN ×2 (05:50→22:09)
[2018-07-30] MEDS: Famotidine 20 MG TAB PO SCH ×2 (08:30→22:05)
[2018-07-30] MEDS: Amlodipine 5 MG TAB PO SCH (08:31)
--- NOTE | 2018-07-30 10:05 | PDOC.PN ---
- Subjective Encounter Start Date: 07/30/18 Encounter Start Time: 10:03 Subjective: No new problem -: Son reported that patient is at baseline. -: No fever, chest pain, palpitation or dysuria - Objective Resuscitation Status - Order Detail: 07/28/18 15:39 Resuscitation Status Routine Resuscitation Status: PRTL: Chem only Discussed with: as per palliative care team's discussion w son Vital Signs & Weight: Vital Signs (12 hours) Temp Pulse Resp BP BP Pulse Ox 07/30/18 08:31 85 147/67 H 07/30/18 07:29 98.5 F 85 16 194/79 H 99 07/30/18 03:34 98.2 F 84 16 153/67 H 97 Weight Weight 212 lb 9.6 oz I&O: 07/29/18 07/30/18 07/31/18 06:59 06:59 06:59 Intake Total 1870 887 Output Total 920 520 Balance 950 367 Result Diagrams: 07/29/18 06:19 07/29/18 06:19 Phys Exam - Physical Examination obese female in no distress HEENT: PERRLA, moist MMs Neck: no JVD, supple Respiratory: no wheezing, no rhonchi, clear to auscultation bilateral Cardiovascular: RRR soft systolic murmur noted Gastrointestinal: soft, non-tender, no distention, positive bowel sounds obese Musculoskeletal: no edema Neurological: moves all 4 limbs memory lapses noted Psychiatric: A&O x 3 Dx/Plan (1) Hypothyroidism Code(s): E03.9 - HYPOTHYROIDISM, UNSPECIFIED Status: Acute (2) SSS (sick sinus syndrome) Code(s): I49.5 - SICK SINUS SYNDROME Status: Acute (3) Frequent falls Code(s): R29.6 - REPEATED FALLS Status: Acute (4) Physical deconditioning Code(s): R53.81 - OTHER MALAISE Status: Acute (5) Acute metabolic encephalopathy Code(s): G93.41 - METABOLIC ENCEPHALOPATHY Status: Acute Comment: due to #1 (6) UTI (urinary tract infection) Status: Acute (7) CAD (coronary artery disease) Code(s): I25.10 - ATHSCL HEART DISEASE OF [place] CORONARY ARTERY W/O ANG PCTRS Status: Chronic (8) Dementia Code(s): F03.90 - UNSPECIFIED DEMENTIA WITHOUT BEHAVIORAL DISTURBANCE Status: Chronic (9) NSVT (nonsustained ventricular tachycardia) Code(s): I47.2 - VENTRICULAR TACHYCARDIA Status: Resolved Comment: Cardiology does not think that the strip represented V tach. Echoshowed preserved EF. - Plan Continue current antibiotics. -: Son reported that he cannot take care of patient anymore. -: case mgt to help with SNF vs [employer] placement -: Continue PT/OT * .
[2018-07-30] MEDS: cefTRIAXone\\ROCEPHIN 2 GM in Sodium Chloride 0.9% 100 ML IVPB SCH (12:33)
[2018-07-30] MEDS: Pravastatin Sodium 20 MG TAB PO SCH (22:05)
[2018-07-30] MEDS: Donepezil HCl 10 MG TAB PO SCH (22:05)
[2018-07-31] MEDS: Levothyroxine Sodium 50 MCG TAB PO SCH (05:47)
[2018-07-31] MEDS ORDERED: Sodium Chloride 0.9% 10 ML ONE ×2 (09:22→13:15)
[2018-07-31] MEDS: Amlodipine 10 MG TAB PO SCH (10:11)
[2018-07-31] MEDS: Famotidine 20 MG TAB PO SCH ×2 (10:11→21:36)
[2018-07-31] MEDS: cefTRIAXone\\ROCEPHIN 2 GM in Sodium Chloride 0.9% 100 ML IVPB SCH (13:58)
[2018-07-31] MEDS: Acetaminophen 500 MG TAB PO PRN ×2 (14:13→18:06)
[2018-07-31] MEDS: ALPRAZolam 0.25 MG TAB PO PRN (14:14)
--- NOTE | 2018-07-31 14:44 | PDOC.PN ---
- Subjective Encounter Start Date: 07/31/18 Encounter Start Time: 14:43 Subjective: feels much better. says that she is eating ok but hasn't walked yet -: agrees for short term & senior care placement. - Objective Resuscitation Status - Order Detail: 07/28/18 15:39 Resuscitation Status Routine Resuscitation Status: PRTL: Chem only Discussed with: as per palliative care team's discussion w son MAHESH Reviewed: Yes Vital Signs & Weight: Vital Signs (12 hours) Temp Pulse Resp BP BP Pulse Ox 07/31/18 10:11 70 150/70 H 07/31/18 08:00 97.9 F 70 18 150/70 H 97 07/31/18 03:25 97.5 F L 73 17 146/73 H 98 Weight Weight 212 lb 9.6 oz I&O: 07/30/18 07/31/18 08/01/18 06:59 06:59 06:59 Intake Total 887 660 Output Total 520 1300 Balance 367 -640 Result Diagrams: 07/29/18 06:19 07/29/18 06:19 Additional Labs: Microbiology 07/17/18 13:11 Urine Straight Catheter Urine Culture - Final Gram Negative Ameya Phys Exam - Physical Examination Constitutional: NAD HEENT: PERRLA, moist MMs, sclera anicteric, oral pharynx no lesions, 2+ tonsils Neck: no nodes, no JVD, supple, full ROM Respiratory: no wheezing, no rales, no rhonchi, clear to auscultation bilateral Cardiovascular: RRR, no significant murmur Gastrointestinal: soft, non-tender, no distention, positive bowel sounds Musculoskeletal: no edema, pulses present Neurological: non-focal, normal sensation, moves all 4 limbs Psychiatric: normal affect, A&O x 3 Skin: no rash Dx/Plan (1) UTI (urinary tract infection) Status: Acute Comment: GNR <10,000 in Urine Cx (2) Acute metabolic encephalopathy Code(s): G93.41 - METABOLIC ENCEPHALOPATHY Status: Acute Comment: due to # 1.improved (3) NSVT (nonsustained ventricular tachycardia) Code(s): I47.2 - VENTRICULAR TACHYCARDIA Status: Resolved Comment: Cardiology does not think that the strip represented V tach. Echoshowed preserved EF. (4) Dementia Code(s): F03.90 - UNSPECIFIED DEMENTIA WITHOUT BEHAVIORAL DISTURBANCE Status: Chronic (5) CAD (coronary artery disease) Code(s): I25.10 - ATHSCL HEART DISEASE OF [place] CORONARY ARTERY W/O ANG PCTRS Status: Chronic (6) Pacemaker Code(s): Z95.0 - PRESENCE OF CARDIAC PACEMAKER Status: Chronic (7) Renal artery stenosis Code(s): I70.1 - ATHEROSCLEROSIS OF RENAL ARTERY Status: Chronic Comment: on ARB.Poor surgical candidate with advanced age and dementia - Plan out of bed/ambulate, DVT proph w/SCDs encourage ambulation -: OK to transfer to Medical. -: Can DC any time as HD stable and doubtful true UTI. -: can change abx to PO if Cx remains ambiguous. -: cont troprol .HR controlled. no arraythmias. * . Review of Systems - Review of Systems Constitutional: negative: fever, chills, sweats, weakness, malaise, other ENT: negative: Ear Pain, Ear Discharge, Nose Pain, Nose Discharge, Nose Congestion, Mouth Pain, Mouth Swelling, Throat Pain, Throat Swelling, Other Respiratory: negative: Cough, Dry, Shortness of Breath, Hemoptysis, SOB with Excertion, Pleuritic Pain, Sputum, Wheezing Cardiovascular: negative: chest pain, palpitations, orthopnea, paroxysmal nocturnal dyspnea, edema, light headedness, other Gastrointestinal: negative: Nausea, Vomiting, Abdominal Pain, Diarrhea, Constipation, Melena, Hematochezia, Other Genitourinary: negative: Dysuria, Frequency, Incontinence, Hematuria, Retention , Other Neurological: negative: Weakness, Numbness, Incoordination, Change in Speech, Confusion, Seizures, Other - Medications/Allergies Allergies/Adverse Reactions: Allergies Allergy/AdvReac Type Severity Reaction Status Date / Time codeine Allergy Verified 07/27/18 13:22 fluconazole Allergy Verified 07/27/18 13:22 Medications: Current Medications Acetaminophen (Tylenol) 1,000 mg PO Q6H PRN PRN Reason: Mild Pain (1-3) Last Admin: 07/31/18 14:13 Dose: 1,000 mg Alprazolam (Xanax) 0.25 mg PO TID PRN PRN Reason: Anxiety Last Admin: 07/31/18 14:14 Dose: 0.25 mg Amlodipine Besylate (Norvasc) 10 mg PO DAILY [facility] Last Admin: 07/31/18 10:11 Dose: 10 mg Clonidine (Catapres) 0.1 mg PO Q4H PRN PRN Reason: SBP>160 Divalproex Sodium (Depakote Er) 500 mg PO HS [facility] Last Admin: 07/30/18 22:05 Dose: 500 mg Donepezil HCl (Aricept) 10 mg PO HS [facility] Last Admin: 07/30/18 22:05 Dose: 10 mg Famotidine (Pepcid) 20 mg PO BID [facility] Last Admin: 07/31/18 10:11 Dose: 20 mg Hydralazine HCl (Apresoline) 10 mg SLOW IVP Q4H PRN PRN Reason: SBP > 180 and HR < 70 Last Admin: 07/29/18 17:48 Dose: 10 mg Ceftriaxone Sodium 2 gm/ (Sodium Chloride) 100 mls @ 200 mls/hr IVPB 1300 [facility] Last Admin: 07/31/18 13:58 Dose: 100 mls Levothyroxine Sodium (Synthroid) 50 mcg PO 0600 [facility] Last Admin: 07/31/18 05:47 Dose: 50 mcg Metoprolol Succinate (Toprol Xl) 25 mg PO 2100 [facility] Last Admin: 07/30/18 22:05 Dose: 25 mg Ondansetron HCl (Zofran Odt) 4 mg PO Q6H PRN PRN Reason: Nausea/Vomiting Last Admin: 07/29/18 13:12 Dose: 4 mg Ondansetron HCl (Zofran) 4 mg IVP Q6H PRN PRN Reason: Nausea/Vomiting Pravastatin Sodium (Pravachol) 20 mg PO HS [facility] Last Admin: 07/30/18 22:05 Dose: 20 mg Sertraline HCl (Zoloft) 100 mg PO DAILY [facility] Last Admin: 07/31/18 10:12 Dose: 100 mg
--- NOTE | 2018-07-31 17:22 | PDOC.CTH ---
Cardiology Progress Note - Subjective The pt seen and examined. No overnight events. No cardiac complaints. - Objective Vital Signs Temp Pulse Resp BP BP BP Pulse Ox 07/31/18 14:42 152/69 H 07/31/18 12:00 97.9 F 70 16 153/70 H 07/31/18 10:11 70 150/70 H 07/31/18 08:00 97.9 F 70 18 150/70 H 97 Weight 212 lb 9.6 oz 07/30/18 07/31/18 08/01/18 06:59 06:59 06:59 Intake Total 887 660 Output Total 520 1300 Balance 367 -640 - Physical Examination General/Neuro: other: (confused) Neck: no JVD present Lungs: CTA Heart: RRR Abdomen: soft Extremities: other: (No edema) - Telemetry Telemetry Rhythm: SR - Labs Result Diagrams: 07/29/18 06:19 07/29/18 06:19 Troponin/CKMB Troponin I Less than 0.010 ng/mL (< 0.028) 07/27/18 16:31 - Assessment/Plan 1. NSVT 2/2 PMT - stable; EF 60-65% 2. AMS - improving 3. CAD with hx of CABG in 2007 - stable; on BBlocker, ARB, ASA, and statin 4. HTN - increase Metoprolol from 25mg to 50mg qd from tonight 5. hx of PM placement - PM interrogation showed normal 6. Hyperlipidemia - on Statin 7. UTI - PO ABX; managed by PCP 8. Demntia - stable 9. Renal artery stenosis - MAR reviewed * Echo on 07/29/2018 showed EF 60-65%, mild dilated LA, midl TR. . Review of Systems - Review of Systems Constitutional: reports: no symptoms reported EENTM: reports: no symptoms reported Respiratory: reports: no symptoms reported Cardiac (ROS): reports: no symptoms reported ABD/GI: reports: no symptoms reported : reports: no symptoms reported Musculoskeletal: reports: no symptoms reported
[2018-07-31] MEDS: Donepezil HCl 10 MG TAB PO SCH (21:36)
[2018-07-31] MEDS: Pravastatin Sodium 20 MG TAB PO SCH (21:36)
[2018-08-01] MEDS: Levothyroxine Sodium 50 MCG TAB PO SCH (05:30)
[2018-08-01] MEDS: cloNIDine 0.1 MG TAB PO PRN ×2 (05:40→21:34)
[2018-08-01] MEDS: Famotidine 20 MG TAB PO SCH ×2 (08:38→20:28)
[2018-08-01] MEDS: Amlodipine 10 MG TAB PO SCH (08:38)
[2018-08-01] MEDS: Aspirin 81 mg Enteric Coated Tablet PO SCH (08:39)
--- NOTE | 2018-08-01 12:13 | PDOC.CTH ---
Cardiology Progress Note - Subjective The pt seen and examined. No overnight events. No cardiac complaints. She is resting well at this time. - Objective Vital Signs Temp Pulse Resp BP BP Pulse Ox 08/01/18 08:38 75 124/53 L 08/01/18 07:40 98.8 F 75 20 124/53 L 98 08/01/18 05:40 172/83 H 08/01/18 05:20 172/83 H Weight 212 lb 9.6 oz 07/31/18 08/01/18 08/02/18 06:59 06:59 06:59 Intake Total 660 200 Output Total 1300 Balance -640 200 - Physical Examination General/Neuro: other: (alerted to self) Lungs: CTA Heart: RRR Abdomen: soft Extremities: other: (No edema) - Labs Result Diagrams: 07/29/18 06:19 07/29/18 06:19 Troponin/CKMB Troponin I Less than 0.010 ng/mL (< 0.028) 07/27/18 16:31 - Assessment/Plan 1. NSVT 2/2 PMT - stable; EF 60-65% 2. AMS - improving 3. CAD with hx of CABG in 2007 - stable; on BBlocker, ARB, ASA, and statin 4. HTN - increase Metoprolol from 25mg to 50mg qd from tonight 5. hx of PM placement - PM interrogation showed normal 6. Hyperlipidemia - on Statin 7. UTI - PO ABX; managed by PCP 8. Demntia - stable 9. Renal artery stenosis - MAR reviewed * Echo on 07/29/2018 showed EF 60-65%, mild dilated LA, midl TR. . Pt. seen and eval. by me. i agree with the A/P by the AREA MANAGER. No further cardiac workup indicated. Cardiac statu is stable. I will sign off. GJM Review of Systems - Review of Systems Constitutional: reports: no symptoms reported EENTM: reports: no symptoms reported Respiratory: reports: no symptoms reported Cardiac (ROS): reports: no symptoms reported ABD/GI: reports: no symptoms reported : reports: no symptoms reported Musculoskeletal: reports: no symptoms reported
--- NOTE | 2018-08-01 13:08 | PDOC.PN ---
- Subjective Encounter Start Date: 08/01/18 Encounter Start Time: 13:05 Subjective: no new complaints,care discussed w son at bedside -: able to eat and drink Ok. - Objective Resuscitation Status - Order Detail: 07/31/18 15:43 Resuscitation Status Routine Resuscitation Status: PRTL: Cardiac only Discussed with: discussed w palliative care team and pt's family MAR Reviewed: Yes Vital Signs & Weight: Vital Signs (12 hours) Temp Pulse Resp BP BP Pulse Ox 08/01/18 08:38 75 124/53 L 08/01/18 07:40 98.8 F 75 20 124/53 L 98 08/01/18 05:40 172/83 H 08/01/18 05:20 172/83 H Weight Weight 212 lb 9.6 oz I&O: 07/31/18 08/01/18 08/02/18 06:59 06:59 06:59 Intake Total 660 200 Output Total 1300 Balance -640 200 Result Diagrams: 07/29/18 06:19 07/29/18 06:19 Additional Labs: Microbiology 07/17/18 13:11 Urine Straight Catheter Urine Culture - Final Gram Negative Ameya Phys Exam - Physical Examination Constitutional: NAD HEENT: PERRLA, moist MMs, sclera anicteric, oral pharynx no lesions Neck: no nodes, no JVD, supple, full ROM Respiratory: no wheezing, no rales, no rhonchi, clear to auscultation bilateral Cardiovascular: RRR, no significant murmur Gastrointestinal: soft, non-tender, no distention, positive bowel sounds Musculoskeletal: no edema, pulses present Neurological: non-focal, normal sensation, moves all 4 limbs Psychiatric: normal affect, A&O x 3 Skin: no rash Dx/Plan (1) UTI (urinary tract infection) Status: Acute Comment: GNR <10,000 in Urine Cx (2) Acute metabolic encephalopathy Code(s): G93.41 - METABOLIC ENCEPHALOPATHY Status: Acute Comment: due to # 1.improved (3) NSVT (nonsustained ventricular tachycardia) Code(s): I47.2 - VENTRICULAR TACHYCARDIA Status: Resolved Comment: Cardiology does not think that the strip represented V tach. Echoshowed preserved EF. (4) Dementia Code(s): F03.90 - UNSPECIFIED DEMENTIA WITHOUT BEHAVIORAL DISTURBANCE Status: Chronic (5) CAD (coronary artery disease) Code(s): I25.10 - ATHSCL HEART DISEASE OF [place] CORONARY ARTERY W/O ANG PCTRS Status: Chronic (6) Pacemaker Code(s): Z95.0 - PRESENCE OF CARDIAC PACEMAKER Status: Chronic (7) Renal artery stenosis Code(s): I70.1 - ATHEROSCLEROSIS OF RENAL ARTERY Status: Chronic Comment: on ARB.Poor surgical candidate with advanced age and dementia - Plan plan discussed w/ family, DVT proph w/SCDs awaiting rehab placement.medically cleared -: discussed w son who also wants custodial palcement -: cont meds as below.Hd stable -: avoidable day #1 * . Review of Systems - Review of Systems Constitutional: negative: fever, chills, sweats, weakness, malaise, other ENT: negative: Ear Pain, Ear Discharge, Nose Pain, Nose Discharge, Nose Congestion, Mouth Pain, Mouth Swelling, Throat Pain, Throat Swelling, Other Respiratory: negative: Cough, Dry, Shortness of Breath, Hemoptysis, SOB with Excertion, Pleuritic Pain, Sputum, Wheezing Cardiovascular: negative: chest pain, palpitations, orthopnea, paroxysmal nocturnal dyspnea, edema, light headedness, other Gastrointestinal: negative: Nausea, Vomiting, Abdominal Pain, Diarrhea, Constipation, Melena, Hematochezia, Other Genitourinary: negative: Dysuria, Frequency, Incontinence, Hematuria, Retention , Other Musculoskeletal: negative: Neck Pain, Shoulder Pain, Arm Pain, Back Pain, Hand Pain, Leg Pain, Foot Pain, Other Neurological: negative: Weakness, Numbness, Incoordination, Change in Speech, Confusion, Seizures, Other - Medications/Allergies Allergies/Adverse Reactions: Allergies Allergy/AdvReac Type Severity Reaction Status Date / Time codeine Allergy Verified 07/27/18 13:22 fluconazole Allergy Verified 07/27/18 13:22 Medications: Current Medications Acetaminophen (Tylenol) 1,000 mg PO Q6H PRN PRN Reason: Mild Pain (1-3) Last Admin: 07/31/18 18:06 Dose: 1,000 mg Alprazolam (Xanax) 0.25 mg PO TID PRN PRN Reason: Anxiety Last Admin: 07/31/18 14:14 Dose: 0.25 mg Amlodipine Besylate (Norvasc) 10 mg PO DAILY [facility] Last Admin: 08/01/18 08:38 Dose: 10 mg Aspirin (Ecotrin) 81 mg PO DAILY [facility] Last Admin: 08/01/18 08:39 Dose: 81 mg Clonidine (Catapres) 0.1 mg PO Q4H PRN PRN Reason: SBP>160 Last Admin: 08/01/18 05:40 Dose: 0.1 mg Divalproex Sodium (Depakote Er) 500 mg PO HS [facility] Last Admin: 07/31/18 21:36 Dose: 500 mg Donepezil HCl (Aricept) 10 mg PO HS [facility] Last Admin: 07/31/18 21:36 Dose: 10 mg Famotidine (Pepcid) 20 mg PO BID [facility] Last Admin: 08/01/18 08:38 Dose: 20 mg Hydralazine HCl (Apresoline) 10 mg SLOW IVP Q4H PRN PRN Reason: SBP > 180 and HR < 70 Last Admin: 07/29/18 17:48 Dose: 10 mg Levothyroxine Sodium (Synthroid) 50 mcg PO 0600 [facility] Last Admin: 08/01/18 05:30 Dose: 50 mcg Lisinopril (Zestril) 2.5 mg PO [facility] Metoprolol Succinate (Toprol Xl) 50 mg PO DAILY [facility] Last Admin: 08/01/18 08:39 Dose: 50 mg Ondansetron HCl (Zofran Odt) 4 mg PO Q6H PRN PRN Reason: Nausea/Vomiting Last Admin: 07/29/18 13:12 Dose: 4 mg Ondansetron HCl (Zofran) 4 mg IVP Q6H PRN PRN Reason: Nausea/Vomiting Pravastatin Sodium (Pravachol) 20 mg PO HS [facility] Last Admin: 07/31/18 21:36 Dose: 20 mg Sertraline HCl (Zoloft) 100 mg PO DAILY [facility] Last Admin: 08/01/18 08:38 Dose: 100 mg
[2018-08-01] MEDS: Lisinopril 2.5 MG TAB PO SCH (20:27)
[2018-08-01] MEDS: Pravastatin Sodium 20 MG TAB PO SCH (20:28)
[2018-08-01] MEDS: Donepezil HCl 10 MG TAB PO SCH (20:28)
[2018-08-01] MEDS: Acetaminophen 500 MG TAB PO PRN (20:28)
[2018-08-01] MEDS: ALPRAZolam 0.25 MG TAB PO PRN (21:34)
[2018-08-01] MEDS ORDERED: Ketorolac Tromethamine 30 MG/ML VIAL IVP SCH (23:45)
[2018-08-02] MEDS: Acetaminophen 500 MG TAB PO PRN ×2 (02:14→20:45)
[2018-08-02] MEDS: Levothyroxine Sodium 50 MCG TAB PO SCH (06:01)
[2018-08-02] MEDS: Famotidine 20 MG TAB PO SCH ×2 (08:13→20:38)
[2018-08-02] MEDS: Aspirin 81 mg Enteric Coated Tablet PO SCH (08:13)
[2018-08-02] MEDS: Amlodipine 10 MG TAB PO SCH (08:13)
[2018-08-02] MEDS: Artificial Tear Sol 15 ML BOT EA EYE PRN (14:34)
--- NOTE | 2018-08-02 16:15 | PDOC.PN ---
- Subjective Encounter Start Date: 08/02/18 Encounter Start Time: 16:13 Subjective: no new complaints. feels well.no overnight events - Objective Resuscitation Status - Order Detail: 07/31/18 15:43 Resuscitation Status Routine Resuscitation Status: PRTL: Cardiac only Discussed with: discussed w palliative care team and pt's family MAR Reviewed: Yes Vital Signs & Weight: Vital Signs (12 hours) Temp Pulse Resp BP BP Pulse Ox 08/02/18 11:33 98.1 F 74 16 137/65 98 08/02/18 08:13 71 137/65 08/02/18 08:10 98 08/02/18 07:11 97.5 F L 71 16 137/65 98 08/02/18 06:00 147/77 H Weight Weight 212 lb 9.6 oz I&O: 08/01/18 08/02/18 08/03/18 06:59 06:59 06:59 Intake Total 200 400 Balance 200 400 Result Diagrams: 07/29/18 06:19 07/29/18 06:19 Additional Labs: Microbiology 07/17/18 13:11 Urine Straight Catheter Urine Culture - Final Gram Negative Ameya Phys Exam - Physical Examination Constitutional: NAD HEENT: PERRLA, moist MMs, sclera anicteric, oral pharynx no lesions Neck: no nodes, no JVD, supple, full ROM Respiratory: no wheezing, no rales, no rhonchi, clear to auscultation bilateral Cardiovascular: RRR, no significant murmur, no rub Gastrointestinal: soft, non-tender, no distention, positive bowel sounds Musculoskeletal: no edema, pulses present Neurological: non-focal, normal sensation, moves all 4 limbs Psychiatric: normal affect, A&O x 3 Skin: no rash Dx/Plan (1) UTI (urinary tract infection) Status: Acute Comment: GNR <10,000 in Urine Cx (2) Acute metabolic encephalopathy Code(s): G93.41 - METABOLIC ENCEPHALOPATHY Status: Acute Comment: due to # 1.improved. (3) NSVT (nonsustained ventricular tachycardia) Code(s): I47.2 - VENTRICULAR TACHYCARDIA Status: Resolved Comment: Cardiology does not think that the strip represented V tach. Echoshowed preserved EF. (4) Dementia Code(s): F03.90 - UNSPECIFIED DEMENTIA WITHOUT BEHAVIORAL DISTURBANCE Status: Chronic (5) CAD (coronary artery disease) Code(s): I25.10 - ATHSCL HEART DISEASE OF [place] CORONARY ARTERY W/O ANG PCTRS Status: Chronic (6) Pacemaker Code(s): Z95.0 - PRESENCE OF CARDIAC PACEMAKER Status: Chronic (7) Renal artery stenosis Code(s): I70.1 - ATHEROSCLEROSIS OF RENAL ARTERY Status: Chronic Comment: on ARB.Poor surgical candidate with advanced age and dementia - Plan DVT proph w/SCDs DC when approved for rehab. mo medical needs -: avodable day #2. -: family can not take care of pt at home so requesting placement * . Review of Systems - Review of Systems Constitutional: negative: fever, chills, sweats, weakness, malaise, other Respiratory: negative: Cough, Dry, Shortness of Breath, Hemoptysis, SOB with Excertion, Pleuritic Pain, Sputum, Wheezing Cardiovascular: negative: chest pain, palpitations, orthopnea, paroxysmal nocturnal dyspnea, edema, light headedness, other Gastrointestinal: negative: Nausea, Vomiting, Abdominal Pain, Diarrhea, Constipation, Melena, Hematochezia, Other Genitourinary: negative: Dysuria, Frequency, Incontinence, Hematuria, Retention , Other Musculoskeletal: negative: Neck Pain, Shoulder Pain, Arm Pain, Back Pain, Hand Pain, Leg Pain, Foot Pain, Other Neurological: negative: Weakness, Numbness, Incoordination, Change in Speech, Confusion, Seizures, Other - Medications/Allergies Allergies/Adverse Reactions: Allergies Allergy/AdvReac Type Severity Reaction Status Date / Time codeine Allergy Verified 07/27/18 13:22 fluconazole Allergy Verified 07/27/18 13:22 Sulfa (Sulfonamide Allergy Verified 08/02/18 11:29 Antibiotics) Medications: Current Medications Acetaminophen (Tylenol) 1,000 mg PO Q6H PRN PRN Reason: Mild Pain (1-3) Last Admin: 08/02/18 02:14 Dose: 1,000 mg Alprazolam (Xanax) 0.25 mg PO TID PRN PRN Reason: Anxiety Last Admin: 08/01/18 21:34 Dose: 0.25 mg Amlodipine Besylate (Norvasc) 10 mg PO DAILY [facility] Last Admin: 08/02/18 08:13 Dose: 10 mg Artificial Tears (Tears Renewed 15ml Bottle) 0 drop EA EYE BIDPRN PRN PRN Reason: DRY EYES Last Admin: 08/02/18 14:34 Dose: 2 drop Aspirin (Ecotrin) 81 mg PO DAILY [facility] Last Admin: 08/02/18 08:13 Dose: 81 mg Clonidine (Catapres) 0.1 mg PO Q4H PRN PRN Reason: SBP>160 Last Admin: 08/01/18 21:34 Dose: 0.1 mg Divalproex Sodium (Depakote Er) 500 mg PO HS [facility] Last Admin: 08/01/18 20:28 Dose: 500 mg Donepezil HCl (Aricept) 10 mg PO HS [facility] Last Admin: 08/01/18 20:28 Dose: 10 mg Famotidine (Pepcid) 20 mg PO BID [facility] Last Admin: 08/02/18 08:13 Dose: 20 mg Hydralazine HCl (Apresoline) 10 mg SLOW IVP Q4H PRN PRN Reason: SBP > 180 and HR < 70 Last Admin: 07/29/18 17:48 Dose: 10 mg Levothyroxine Sodium (Synthroid) 50 mcg PO 0600 [facility] Last Admin: 08/02/18 06:01 Dose: 50 mcg Lisinopril (Zestril) 2.5 mg PO HS [facility] Last Admin: 08/01/18 20:27 Dose: 2.5 mg Metoprolol Succinate (Toprol Xl) 50 mg PO DAILY [facility] Last Admin: 08/02/18 08:13 Dose: 50 mg Ondansetron HCl (Zofran Odt) 4 mg PO Q6H PRN PRN Reason: Nausea/Vomiting Last Admin: 07/29/18 13:12 Dose: 4 mg Ondansetron HCl (Zofran) 4 mg IVP Q6H PRN PRN Reason: Nausea/Vomiting Pravastatin Sodium (Pravachol) 20 mg PO HS [facility] Last Admin: 08/01/18 20:28 Dose: 20 mg Sertraline HCl (Zoloft) 100 mg PO DAILY [facility] Last Admin: 08/02/18 08:13 Dose: 100 mg Sodium Chloride (Flush - Normal Saline) 10 ml IVF Q12HR [facility] Sodium Chloride (Flush - Normal Saline) 10 ml IVF PRN PRN PRN Reason: Saline Flush
[2018-08-02] MEDS: Donepezil HCl 10 MG TAB PO SCH (20:39)
[2018-08-02] MEDS: Pravastatin Sodium 20 MG TAB PO SCH (20:39)
[2018-08-02] MEDS: Lisinopril 2.5 MG TAB PO SCH (20:44)
[2018-08-03] MEDS: Levothyroxine Sodium 50 MCG TAB PO SCH (06:14)
[2018-08-03] MEDS: Famotidine 20 MG TAB PO SCH (07:55)
[2018-08-03] MEDS: Aspirin 81 mg Enteric Coated Tablet PO SCH (07:56)
[2018-08-03] MEDS: Amlodipine 10 MG TAB PO SCH (07:56)
[2018-08-03] MEDS: Artificial Tear Sol 15 ML BOT EA EYE PRN (08:00)
[2018-08-03] MEDS: Acetaminophen 500 MG TAB PO PRN (14:53)
[2018-08-03 15:02] VITALS: BP 165/68
[2018-08-03] MEDS: cloNIDine 0.1 MG TAB PO PRN (15:02)
[2018-08-03 15:04] VITALS: TEMP 97.9
[2018-08-03] MEDS ORDERED: Ketotifen Fumarate 0.025% Ophth Soln 5 ml Bottle R EYE SCH (15:09)
[2018-08-03] MEDS ORDERED: Artificial Tear Sol 15 ML BOT EA EYE PRN (15:09)
--- NOTE | 2018-08-03 15:11 | PDOC.PN ---
- Subjective Encounter Start Date: 08/03/18 Encounter Start Time: 15:10 Subjective: c/o eye pain and irritationw feeling of "grits" in eyes - Objective Resuscitation Status - Order Detail: 07/31/18 15:43 Resuscitation Status Routine Resuscitation Status: PRTL: Cardiac only Discussed with: discussed w palliative care team and pt's family MAR Reviewed: Yes Vital Signs & Weight: Vital Signs (12 hours) Temp Pulse Resp BP BP BP Pulse Ox 08/03/18 15:02 97.9 F 74 16 165/68 H 165/68 H 97 08/03/18 09:15 181/77 H 08/03/18 07:56 75 145/76 H 08/03/18 07:55 98 08/03/18 07:37 97.7 F 75 18 145/68 H 98 Weight Weight 212 lb 9.6 oz I&O: 08/02/18 08/03/18 08/04/18 06:59 06:59 06:59 Intake Total 400 960 Balance 400 960 Result Diagrams: 07/29/18 06:19 07/29/18 06:19 Phys Exam - Physical Examination Constitutional: NAD HEENT: PERRLA, moist MMs, sclera anicteric, TM's clear, oral pharynx no lesions , 2+ tonsils no conjuctival injection.no obvoius corneal ulcers.no FB Neck: no nodes, no JVD, supple, full ROM Respiratory: no wheezing, no rales, no rhonchi, clear to auscultation bilateral Cardiovascular: RRR, no significant murmur, no rub Gastrointestinal: soft, non-tender, no distention, positive bowel sounds Musculoskeletal: no edema, pulses present Neurological: non-focal, normal sensation, moves all 4 limbs Psychiatric: normal affect, A&O x 3 Skin: no rash Dx/Plan (1) UTI (urinary tract infection) Status: Acute Comment: GNR <10,000 in Urine Cx (2) Acute metabolic encephalopathy Code(s): G93.41 - METABOLIC ENCEPHALOPATHY Status: Acute Comment: due to # 1.improved. (3) NSVT (nonsustained ventricular tachycardia) Code(s): I47.2 - VENTRICULAR TACHYCARDIA Status: Resolved Comment: Cardiology does not think that the strip represented V tach. Echoshowed preserved EF. (4) Dementia Code(s): F03.90 - UNSPECIFIED DEMENTIA WITHOUT BEHAVIORAL DISTURBANCE Status: Chronic (5) CAD (coronary artery disease) Code(s): I25.10 - ATHSCL HEART DISEASE OF [place] CORONARY ARTERY W/O ANG PCTRS Status: Chronic (6) Pacemaker Code(s): Z95.0 - PRESENCE OF CARDIAC PACEMAKER Status: Chronic (7) Renal artery stenosis Code(s): I70.1 - ATHEROSCLEROSIS OF RENAL ARTERY Status: Chronic Comment: on ARB.Poor surgical candidate with advanced age and dementia - Plan DVT proph w/SCDs add artifical tears and antihistamines eye drops -: OK toDC if accpted at rehab.HD stable -: Avoidable day #3 * . Review of Systems - Review of Systems Constitutional: negative: fever, chills, sweats, weakness, malaise, other Eyes: Pain, Redness Respiratory: negative: Cough, Dry, Shortness of Breath, Hemoptysis, SOB with Excertion, Pleuritic Pain, Sputum, Wheezing Cardiovascular: negative: chest pain, palpitations, orthopnea, paroxysmal nocturnal dyspnea, edema, light headedness, other Gastrointestinal: negative: Nausea, Vomiting, Abdominal Pain, Diarrhea, Constipation, Melena, Hematochezia, Other Genitourinary: negative: Dysuria, Frequency, Incontinence, Hematuria, Retention , Other Musculoskeletal: negative: Neck Pain, Shoulder Pain, Arm Pain, Back Pain, Hand Pain, Leg Pain, Foot Pain, Other Neurological: negative: Weakness, Numbness, Incoordination, Change in Speech, Confusion, Seizures, Other - Medications/Allergies Allergies/Adverse Reactions: Allergies Allergy/AdvReac Type Severity Reaction Status Date / Time codeine Allergy Verified 07/27/18 13:22 fluconazole Allergy Verified 07/27/18 13:22 Sulfa (Sulfonamide Allergy Verified 08/02/18 11:29 Antibiotics) Medications: Current Medications Acetaminophen (Tylenol) 1,000 mg PO Q6H PRN PRN Reason: Mild Pain (1-3) Last Admin: 08/03/18 14:53 Dose: 1,000 mg Alprazolam (Xanax) 0.25 mg PO TID PRN PRN Reason: Anxiety Last Admin: 08/01/18 21:34 Dose: 0.25 mg Amlodipine Besylate (Norvasc) 10 mg PO DAILY [facility] Last Admin: 08/03/18 07:56 Dose: 10 mg Artificial Tears (Tears Renewed 15ml Bottle) 0 drop EA EYE BIDPRN PRN PRN Reason: DRY EYES Last Admin: 08/03/18 08:00 Dose: 2 drop Artificial Tears (Tears Renewed 15ml Bottle) 2 drop EA EYE QID PRN PRN Reason: Dry Eyes Aspirin (Ecotrin) 81 mg PO DAILY [facility] Last Admin: 08/03/18 07:56 Dose: 81 mg Clonidine (Catapres) 0.1 mg PO Q4H PRN PRN Reason: SBP>160 Last Admin: 08/03/18 15:02 Dose: 0.1 mg Divalproex Sodium (Depakote Er) 500 mg PO [facility] Last Admin: 08/02/18 20:39 Dose: 500 mg Donepezil HCl (Aricept) 10 mg PO HS [facility] Last Admin: 08/02/18 20:39 Dose: 10 mg Famotidine (Pepcid) 20 mg PO BID [facility] Last Admin: 08/03/18 07:55 Dose: 20 mg Hydralazine HCl (Apresoline) 10 mg SLOW IVP Q4H PRN PRN Reason: SBP > 180 and HR < 70 Last Admin: 07/29/18 17:48 Dose: 10 mg Ketotifen Fumarate (Zaditor 0.025% Ophth Soln) 1 drop L EYE BID [facility] Ketotifen Fumarate (Zaditor 0.025% Ophth Soln) 1 drop R EYE BID [facility] Levothyroxine Sodium (Synthroid) 50 mcg PO 0600 [facility] Last Admin: 08/03/18 06:14 Dose: 50 mcg Lisinopril (Zestril) 2.5 mg PO [facility] Last Admin: 08/02/18 20:44 Dose: 2.5 mg Metoprolol Succinate (Toprol Xl) 50 mg PO DAILY [facility] Last Admin: 08/03/18 07:56 Dose: 50 mg Ondansetron HCl (Zofran Odt) 4 mg PO Q6H PRN PRN Reason: Nausea/Vomiting Last Admin: 07/29/18 13:12 Dose: 4 mg Ondansetron HCl (Zofran) 4 mg IVP Q6H PRN PRN Reason: Nausea/Vomiting Pravastatin Sodium (Pravachol) 20 mg PO [facility] Last Admin: 08/02/18 20:39 Dose: 20 mg Sertraline HCl (Zoloft) 100 mg PO DAILY [facility] Last Admin: 08/03/18 07:56 Dose: 100 mg Sodium Chloride (Flush - Normal Saline) 10 ml IVF Q12HR [facility] Last Admin: 08/03/18 07:56 Dose: 10 ml Sodium Chloride (Flush - Normal Saline) 10 ml IVF PRN PRN PRN Reason: Saline Flush
[2018-08-03] MEDS ORDERED: Ketotifen Fumarate 0.025% Ophth Soln 5 ml Bottle EA EYE SCH ×2 (15:30→21:00)
--- NOTE | 2018-08-04 14:20 | DIS ---
DATE OF ADMISSION: 07/27/2018 DATE OF DISCHARGE: 08/03/2018 DISCHARGE DISPOSITION: [facility]. DISCHARGE DIAGNOSES: 1. Urinary tract infection. 2. Acute metabolic encephalopathy. 3. One episode of nonsustained ventricular tachycardia. 4. Dementia. 5. Coronary artery disease. 6. Pacemaker present. 7. Renal artery stenosis. DISCHARGE MEDICATIONS: Please note that the patient was discharged without me being notified. She was apparently approved for the rehab and I was not called for discharge orders. Her medication reconciliation was not filled. She was on following medications in the hospital. She can restart these: 1. Amlodipine 10 mg daily. 2. Aspirin 81 mg daily. 3. Depakote 500 mg at bedtime. 4. Aricept 10 mg at bedtime. 5. Pepcid 20 mg p.o. b.i.d. 6. Ketotifen eye drops. 7. Synthroid 50 mcg daily. 8. Lisinopril 2.5 mg at bedtime. 9. Toprol-XL 50 mg daily. 10. Pravastatin 20 mg daily. 11. Zoloft 100 mg daily. PROCEDURES DONE IN HOSPITAL: 1. Transthoracic echocardiogram which shows EF of 60% to 65%. No acute changes. 2. CT scan of the brain upon presentation on 07/27/2018, which did not show any acute changes. 3. CT scan with dissection protocol on 07/27/2018, no dissection or aneurysm. Moderate to severe stenosis of the right renal artery and atrophy of the left renal artery with left renal artery stent placed. IN-HOUSE CONSULTATION: Cardiology, Dr. Maguire and Dr. Jimenez. PRIMARY CARE PHYSICIAN: Dr. Cruz Esquivel. HISTORY OF PRESENTING ILLNESS: Ms. Garrido is a pleasant 88-year-old female with past medical history of hypothyroidism, dyslipidemia, hypertension, sick sinus syndrome, status post pacemaker placement, coronary artery disease, who presented to the emergency room with complaints of chest pain and altered mental status. She does have some baseline dementia and confusion, but it has been worsening prior to presentation. She also has intermittent falls because she was not using her rolling walker. She forgets to use it. In the ER, she did not have any significant metabolic abnormalities. UTI was suspected for positive UA. She received IV antibiotic and was admitted for further workup. She also had a short run of nonsustained ventricular tachycardia in the emergency room and was placed on IV amiodarone. Cardiology was consulted. Please see admission history and physical dictated by Dr. Sorenson on the date of admission 07/27/2018, for full details. HOSPITAL COURSE: The patient's serial cardiac enzymes were done and they were unremarkable. Dr. Maguire saw the patient and echocardiogram was done. Echo was also essentially unremarkable. Pacemaker interrogation was done which was unremarkable. She was taken off the amiodarone. With regard to urinary tract infection, her urine culture did not yield any bacteria. Antibiotics were stopped. Her mentation improved and her family expressed wishes for her to go to a rehab facility, which was arranged and she was discharged yesterday. Once again, even though I have approved the discharge earlier on, I was not able to do the discharge orders as I was not notified that the patient is being discharged. Nevertheless, she was seen and examined on the day of discharge. Please see hospitalist progress note from the date of discharge for further details including [id number] interaction. The patient was hemodynamically stable for discharge. TOTAL TIME SPENT: 32 minutes. Job ID: [id number]
== END 2018-08-03 15:20 | DRG 689 ==
LOC: ERS 09:43 → ERHOLD 12:49 → OBSVTOIN 15:31 → 2NO 19:28 → T4-A 07-31 17:40
PROVIDERS: ADMIT Family Medicine; ATTEND Family Medicine
DX: N39.0 Urinary tract infection, site not specified (principal); G93.41 Metabolic encephalopathy; I47.1 Supraventricular tachycardia; I10 Essential (primary) hypertension; E03.9 Hypothyroidism, unspecified; F41.9 Anxiety disorder, unspecified; R29.6 Repeated falls; I70.1 Atherosclerosis of renal artery; F32.9 Major depressive disorder, single episode, unspecified; I25.10 Atherosclerotic heart disease of native coronary artery without angina pectoris; I49.5 Sick sinus syndrome; G30.9 Alzheimer's disease, unspecified; F02.80 Dementia in other diseases classified elsewhere, unspecified severity, without behavioral disturbance, psychotic disturbance, mood disturbance, and anxiety; Z88.2 Allergy status to sulfonamides; Z95.0 Presence of cardiac pacemaker; Z95.1 Presence of aortocoronary bypass graft; Z90.710 Acquired absence of both cervix and uterus; Z88.8 Allergy status to other drugs, medicaments and biological substances; Z88.5 Allergy status to narcotic agent; Z79.899 Other long term (current) drug therapy
CPT/HCPCS: 36415; 70450; 71045; 71275; 80048; 80053; 81003; 81015; 83735; 83880; 84443; 84484; 85007; 85025; 85027; 93005; 93306; 96365; 96366; 96375; 96376; J0282; J0360; J0696; J1885; J7050; J7070; Q0162; Q9966

== ENCOUNTER 2018-09-22 13:53 | Inpatient (IN) | payer MEDICARE ==
[2018-09-22 15:08] LABS: Hemoglobin 11.4 g/dL (12.0-16.0); Mean Corpuscular HGB CONC 32.2 g/dL (32.0-36.0); Mean Corpuscular Hemoglobin 31.8 pg (27.0-31.0); Mean Corpuscular Volume 98.8 fL (78.0-98.0); Mean Platelet Volume 7.8 fL (7.4-10.4); Platelet Count 256 thou/uL (130-400); RBC Distribution Width 12.7 % (11.5-14.5); Red Blood Cell (RBC) Count 3.58 mill/uL (4.20-5.40); White Blood Cell (WBC) Count 10.4 thou/uL (4.8-10.8)
--- NOTE | 2018-09-22 15:12 | RAD ---
XR Chest 1 View Portable HISTORY: Dyspnea COMPARISON: 07/27/2018 FINDINGS: Changes of median sternotomy are again seen. Left-sided pacer device remains in place. The heart size is normal. There is a new infiltrate at the right lung base. IMPRESSION: Right basilar pneumonia.
[2018-09-22 15:26] LABS: Band 15 % (5-11); Eosinophils 1 % (0-10); Lymphocytes 5 % (21-51); MDiff Complete? YES; Monocytes 4 % (0-10); Neutrophil 75 % (42-75); Platelet Morphology Comment Appears Adequate
[2018-09-22 15:29] LABS: ALT (SGPT) 10 U/L (8-55); AST (SGOT) 18 U/L (5-34); Albumin 3.1 g/dL (3.4-4.8); Alkaline Phosphatase 72 U/L (40-150); Anion Gap 16 mmol/L (10-20); BUN (Urea Nitrogen) 38 mg/dL (9.8-20.1); Bilirubin, Total 0.6 mg/dL (0.2-1.2); Calc. Creatinine Clearance 0 mL/min (70-130); Calcium 9.4 mg/dL (7.8-10.44); Carbon Dioxide 29 mmol/L (23-31); Chloride 96 mmol/L (98-107); Estimated GFR-MDRD 38; Globulin 3.2 g/dL (2.4-3.5); Glucose 111 mg/dL (83-110); Lipase 4 U/L (8-78); Protein, Total 6.3 g/dL (6.0-8.3); Sodium 137 mmol/L (136-145)
[2018-09-22] MEDS ORDERED: cefTRIAXone\\ROCEPHIN 2 GM VIAL ONE (15:33)
[2018-09-22] MEDS ORDERED: Aspirin 81 mg Enteric Coated Tablet ONE (15:47)
[2018-09-22] MEDS ORDERED: Furosemide 40 MG/4 ML VIAL ONE (15:52)
[2018-09-22] MEDS ORDERED: Azithromycin 500 MG in Sodium Chloride 0.9% 250 ML 250 ML IVPB SCH (16:30)
[2018-09-22 18:40] LABS: Troponin I 0.067 ng/mL (< 0.028)
[2018-09-22] MEDS ORDERED: Ondansetron ODT 4 MG TAB SL PRN (18:42)
[2018-09-22] MEDS ORDERED: Ondansetron PF 4 MG/2 ML Vial IVP PRN (18:42)
[2018-09-22] MEDS ORDERED: Furosemide 40 MG/4 ML VIAL SLOW IVP SCH (21:00)
[2018-09-22 21:42] LABS: Troponin I 0.058 ng/mL (< 0.028)
[2018-09-22] MEDS: Cefepime 2 GM in Sodium Chloride 0.9% 100 ML IVPB SCH (23:15)
--- NOTE | 2018-09-22 23:45 | HP ---
PRIMARY CARE DOCTOR: Dr. Cruz Esquivel. CODE STATUS: Full code. TIME OF EVALUATION: 8:45 p.m. CHIEF COMPLAINT: Shortness of breath. HISTORY OF PRESENT ILLNESS: Information has been gathered from staff. Patient has dementia and is confused. This is an 88-year-old female patient, past medical history of dementia, who came to the hospital after having shortness of breath that was severe, with palpable rales, with no clear triggers, no alleviating factors. Symptoms have been present for the past 2 to 3 days and being gradually getting worse. Today, it became severe. The location, the symptoms are generalized. No clear triggers, no alleviating factors. REVIEW OF SYSTEMS: Unable to obtain. Patient has dementia. She is confused. ALLERGIES: CODEINE, , AND FLUCONAZOLE REPORTED. MEDICATION: 1. Levothyroxine. 2. Alprazolam. 3. Pravastatin. 4. Amlodipine. 5. Divalproex. 6. Donepezil. PHYSICAL EXAMINATION: VITAL SIGNS: On presentation, 148/62 blood pressure with heart rate of 70, respiratory rate was 28, temperature 98.8, pain was 0/10, and oxygen saturation was 93% on room air. GENERAL APPEARANCE: The patient is alert, disoriented, not in acute distress. HEENT: Eyes; normal conjunctivae. Moist oral mucosa. Anicteric. NECK: Bilateral JVD. RESPIRATORY: Bilateral air entry is decreased. Patient has audible rales in bilateral lungs. No wheezing. Symmetric expansion. CARDIOVASCULAR: Normal rate and regular rhythm. No murmurs. No gallop. Bilateral leg edema. ABDOMEN: Soft. Normal bowel sounds. MUSCULOSKELETAL: Baseline range of motion and strength. No tenderness. SKIN: Warm, intact. No pallor. No rash. No redness. Peripheral pulses are present. Capillary refill seems to intact. NEUROLOGIC: No evidence of any new focal weakness. Baseline speech. Cranial nerves seem to be intact. PSYCH: Patient is in good mood. Patient is confused, unable to fully explore. IMAGING: EKG was reviewed. The patient had electronic pacemaker with prolonged QT, ventricular rate 70, DC 100, QRS 96, QT corrected 496. Chest x-ray was reviewed. The patient had right basilar pneumonia. LABORATORY DATA: The patient has white count 10.4, hemoglobin 11.4, MCV 98.8, and platelet count 256. Sodium 137; potassium 4.0; chloride 96; carbon dioxide 29; anion gap 16; BUN 38; creatinine 1.31, the previous creatinine was 0.97; GFR 38; and glucose 111. Troponin has been in the very low range at 0.091, the second one 0.067, and the third one 0.058. ASSESSMENT AND PLAN: The patient will be placed in the hospital with following medical problems: 1. Right lower lobe pneumonia as seen on the chest x-ray. General appearance is the patient is at risk for healthcare associated pneumonia. Symptomatic treatment, we will monitor, we will adjust as per sensitivity. 2. Macrocytic anemia. The patient has a hemoglobin of 11.4. There is no need for any acute intervention at this point, we will monitor. Can be followed as outpatient. 3. Acute kidney injury. The patient has an increase in more than 0.3 mg/dL of creatinine 1.3, on previous admission was 0.9. We will monitor, this could be secondary to infection, we will adjust treatment as per patient's clinical response. 4. Zwh-YP-bpbrifwdy myocardial infarction type 2. The patient has a troponin 0.091, second one 0.067, third one 0.058. This is likely secondary to sepsis. We will monitor. There will be also a component of underlying congestive heart failure. 5. Deep venous thrombosis prophylaxis. 6. Hyperlipidemia, low-cholesterol diet is advised. Reconcile home medications. 7. Dementia. Patient will need support as inpatient. 8. Uncontrolled hypertension. Systolic blood pressure 148, reconcile home medications. Adjust as needed. Job ID: [id number]
[2018-09-23] MEDS: Levothyroxine Sodium 50 MCG TAB PO SCH (05:16)
[2018-09-23] MEDS ORDERED: PROVENTIL INHALER 6.7 G (200 INHALATIONS) INH PRN (07:18)
[2018-09-23] MEDS ORDERED: Diabetic Tussin 200 MG/10 ML UDCUP PO PRN (07:19)
[2018-09-23] MEDS ORDERED: Artificial Tears 18 DROP/0.9 ML EA EYE PRN (07:19)
[2018-09-23] MEDS ORDERED: Cepastat Lozenges 1 LOZ PO PRN (07:19)
[2018-09-23] MEDS ORDERED: hydrALAZINE 20 MG/ML VIAL SLOW IVP PRN (07:19)
[2018-09-23] MEDS ORDERED: Zolpidem Tartrate 5 MG TAB PO PRN (07:19)
[2018-09-23] MEDS ORDERED: Bisacodyl 10 MG SUPP PR PRN (07:19)
[2018-09-23] MEDS ORDERED: Sodium Chloride 0.65% Nasal 44 ML BOT EA NARE PRN (07:19)
[2018-09-23] MEDS ORDERED: Loratadine 10 MG TAB PO PRN (07:19)
[2018-09-23] MEDS ORDERED: Loperamide HCl 2 MG CAP PO PRN (07:19)
[2018-09-23] MEDS ORDERED: Eucerin (Mineral Oil/Petrolatum,White) 30 gm Jar TOP PRN (07:19)
[2018-09-23] MEDS ORDERED: Senokot S 8.6-50 MG TAB PO PRN (07:19)
[2018-09-23] MEDS ORDERED: Amlodipine 5 MG TAB PO SCH (09:00)
[2018-09-23] MEDS ORDERED: Enoxaparin Sodium 40 MG/0.4 ML SYRINGE SC SCH (09:00)
[2018-09-23] MEDS ORDERED: Prevnar 13-Val Conj/PF 0.5 ML SYRINGE IM ONE (09:00)
[2018-09-23] MEDS ORDERED: Levothyroxine Sodium 50 MCG TAB PO SCH (09:00)
[2018-09-23] MEDS: Saccharomyces boulardii 250 MG CAP PO SCH (09:02)
[2018-09-23] MEDS: Aspirin 81 mg Enteric Coated Tablet PO SCH (09:02)
[2018-09-23] MEDS: Donepezil HCl 10 MG TAB PO SCH (09:02)
--- NOTE | 2018-09-23 10:17 | PDOC.PN ---
- Subjective Encounter Start Date: 09/23/18 Encounter Start Time: 08:00 Patient seen and examined. pt has cough with sputum, no fever. No overnight events - Objective Resuscitation Status - Order Detail: 09/22/18 22:47 Resuscitation Status Routine Resuscitation Status: FULL: Full Resuscitation MAR Reviewed: Yes Vital Signs & Weight: Vital Signs (12 hours) Temp Pulse Resp BP BP Pulse Ox 09/23/18 09:01 72 138/64 09/23/18 07:40 97.6 F 72 20 138/64 100 09/23/18 07:33 97 09/23/18 07:27 75 20 97 09/23/18 03:27 97.9 F 70 20 140/62 97 09/23/18 03:14 93 L 09/22/18 23:04 93 L 09/22/18 23:02 72 18 93 L Weight Weight 207 lb 4.8 oz I&O: 09/22/18 09/23/18 09/24/18 06:59 06:59 06:59 Intake Total 200 Output Total 400 Balance -200 Result Diagrams: 09/22/18 15:00 09/22/18 15:00 Radiology Reviewed by me: Yes EKG Reviewed by me: Yes Phys Exam - Physical Examination Constitutional: NAD HEENT: PERRLA, moist MMs, sclera anicteric Neck: no JVD, supple Respiratory: no wheezing, no rhonchi right base rales Cardiovascular: RRR, no significant murmur, no rub Gastrointestinal: soft, non-tender, no distention, positive bowel sounds Musculoskeletal: no edema, pulses present Neurological: non-focal, normal sensation Lymphatic: no nodes Psychiatric: normal affect Skin: no rash, normal turgor Dx/Plan (1) Acute kidney injury Code(s): N17.9 - ACUTE KIDNEY FAILURE, UNSPECIFIED Status: Acute (2) Community acquired bacterial pneumonia Code(s): J15.9 - UNSPECIFIED BACTERIAL PNEUMONIA Status: Acute (3) Type [address] elevation Code(s): I21.A1 - MYOCARDIAL INFARCTION TYPE 2 Status: Acute (4) Alzheimer's dementia Code(s): G30.9 - ALZHEIMER'S DISEASE, UNSPECIFIED; F02.80 - DEMENTIA IN OTH DISEASES CLASSD ELSWHR W/O BEHAVRL DISTURB Status: Chronic (5) Anxiety and depression Code(s): F41.9 - ANXIETY DISORDER, UNSPECIFIED; F32.9 - MAJOR DEPRESSIVE DISORDER, SINGLE EPISODE, UNSPECIFIED Status: Chronic (6) CAD (coronary artery disease) Code(s): I25.10 - ATHSCL HEART DISEASE OF [place] CORONARY ARTERY W/O ANG PCTRS Status: Chronic (7) H/O cardiac pacemaker Code(s): Z95.0 - PRESENCE OF CARDIAC PACEMAKER Status: Chronic (8) H/O sick sinus syndrome Code(s): Z86.79 - PERSONAL HISTORY OF OTHER DISEASES OF THE CIRCULATORY SYSTEM Status: Chronic (9) Hypothyroidism Code(s): E03.9 - HYPOTHYROIDISM, UNSPECIFIED Status: Chronic (10) Macrocytic anemia Code(s): D53.9 - NUTRITIONAL ANEMIA, UNSPECIFIED Status: Chronic (11) Obesity (BMI 30.0-34.9) Code(s): E66.9 - OBESITY, UNSPECIFIED Status: Chronic (12) Renal artery stenosis Code(s): I70.1 - ATHEROSCLEROSIS OF RENAL ARTERY Status: Chronic Comment: (13) Chronic stage c diastolic heart failure Code(s): I50.32 - CHRONIC DIASTOLIC (CONGESTIVE) HEART FAILURE Status: Chronic - Plan cont current plan of care, continue antibiotics * continue cefepime and levaquin * repeat labs tomorrow * start PT. * will avoid giving fluid due to CHF history * medication reviewed as below * symptomatic treatment Review of Systems - Review of Systems Constitutional: weakness. negative: fever, chills, sweats, malaise, other Respiratory: Cough, Shortness of Breath, Sputum. negative: Dry, Hemoptysis, SOB with Excertion, Pleuritic Pain, Wheezing Cardiovascular: negative: chest pain, palpitations, orthopnea, paroxysmal nocturnal dyspnea, edema, light headedness, other Gastrointestinal: negative: Nausea, Vomiting, Abdominal Pain, Diarrhea, Constipation, Melena, Hematochezia, Other Genitourinary: negative: Dysuria, Frequency, Incontinence, Hematuria, Retention , Other Musculoskeletal: negative: Neck Pain, Shoulder Pain, Arm Pain, Back Pain, Hand Pain, Leg Pain, Foot Pain, Other Skin: negative: Rash, Lesions, Dann, Bruising, Other - Medications/Allergies Allergies/Adverse Reactions: Allergies Allergy/AdvReac Type Severity Reaction Status Date / Time codeine Allergy Verified 03/14/19 13:22 fluconazole Allergy Verified 07/27/18 13:22 Sulfa (Sulfonamide Allergy Verified 08/02/18 11:29 Antibiotics) Medications: Current Medications Acetaminophen (Tylenol) 650 mg PO Q4H PRN PRN Reason: Headache/Fever or Pain Stop: 09/26/18 03:45 Albuterol Sulfate (Proventil Hfa) 1 puff INH Q4H PRN PRN Reason: Wheezing Albuterol/Ipratropium (Duoneb) 3 ml NEB [id number] [facility] Last Admin: 09/23/18 07:27 Dose: 3 ml Alprazolam (Xanax) 0.25 mg PO TID PRN PRN Reason: Anxiety Amlodipine Besylate (Norvasc) 5 mg PO DAILY [facility] Last Admin: 09/23/18 09:01 Dose: 5 mg Artificial Tears (Tears Naturale) 2 drop EA EYE PRN PRN PRN Reason: Dry Eyes Aspirin (Ecotrin) 81 mg PO DAILY [facility] Last Admin: 09/23/18 09:02 Dose: 81 mg Bisacodyl (Dulcolax) 10 mg [place] DAILYPRN PRN PRN Reason: Constipation Divalproex Sodium (Depakote Er) 500 mg PO HS [facility] Donepezil HCl (Aricept) 10 mg PO DAILY [facility] Last Admin: 09/23/18 09:02 Dose: 10 mg Enoxaparin Sodium (Lovenox) 40 mg SC 0900 [facility] Last Admin: 09/23/18 09:02 Dose: 40 mg Guaifenesin (Robitussin Sf) 200 mg PO Q4H PRN PRN Reason: Cough Hydralazine HCl (Apresoline) 10 mg SLOW IVP Q4H PRN PRN Reason: SBP > 180 and HR < 70 Cefepime HCl 2 gm/ Sodium (Chloride) 100 mls @ 200 mls/hr IVPB 1200,2359 [facility] Last Admin: 09/22/18 23:15 Dose: 100 mls Levofloxacin 500 mg/ Device 100 mls @ 100 mls/hr IVPB 0800 [facility] Last Admin: 09/23/18 09:00 Dose: 100 mls Levothyroxine Sodium (Synthroid) 50 mcg PO 0600 [facility] Last Admin: 09/23/18 05:16 Dose: 50 mcg Loperamide HCl (Imodium) 2 mg PO PRN PRN PRN Reason: Diarrhea/Loose Stools Loratadine (Claritin) 10 mg PO DAILYPRN PRN PRN Reason: Sinus Symptoms Metoprolol Succinate (Toprol Xl) 25 mg PO DAILY [facility] Last Admin: 09/23/18 09:02 Dose: 25 mg Mineral Oil/White Petrolatum (Eucerin Cream) 0 gm TOP BIDPRN PRN PRN Reason: Dry Skin Ondansetron HCl (Zofran) 4 mg IVP Q6H PRN PRN Reason: Nausea/Vomiting Stop: 09/27/18 03:45 Ondansetron HCl (Zofran Odt) 4 mg SL Q6H PRN PRN Reason: Nausea/Vomiting Stop: 09/26/18 03:45 Ranolazine (Ranexa) 500 mg PO BID [facility] Last Admin: 09/23/18 09:02 Dose: 500 mg Saccharomyces Boulardii (Florastor) 250 mg PO DAILY [facility] Last Admin: 09/23/18 09:02 Dose: 250 mg Senna/Docusate Sodium (Senokot S) 2 tab PO BID PRN PRN Reason: Constipation Sertraline HCl (Zoloft) 100 mg PO DAILY [facility] Last Admin: 09/23/18 09:02 Dose: 100 mg Simvastatin (Zocor) 10 mg PO [facility] Sodium Chloride ([place] Nasal [place] 0.65%) 0 ml EA NARE QIDPRN PRN PRN Reason: Nasal Congestion Throat Lozenges (Cepastat Lozenges) 1 elham PO Q2H PRN PRN Reason: Sore Throat Zolpidem Tartrate (Ambien) 5 mg PO HSPRN PRN PRN Reason: Insomnia
[2018-09-23] MEDS: Cefepime 2 GM in Sodium Chloride 0.9% 100 ML IVPB SCH ×2 (12:29→23:25)
[2018-09-23] MEDS: Acetaminophen 325 MG TAB PO PRN (15:39)
[2018-09-23] MEDS: Simvastatin 5 MG TAB PO SCH (21:06)
[2018-09-23] MEDS: ALPRAZolam 0.25 MG TAB PO PRN (21:06)
[2018-09-23] MEDS ORDERED: Diltiazem 125 MG in Sodium Chloride 0.9% 100 ML IVPB SCH (23:15)
--- NOTE | 2018-09-23 23:15 | PDOC.EVN ---
Event Note - Event Note Event Note: Patient went into afib with RVR; will start Cardizem gtt, full anticoagulation with lovenox (90 mg qd per renal dosing)/ CHADS VASC=6 and consult cardio.
[2018-09-23] MEDS ORDERED: Enoxaparin Sodium 100 MG/ML SYRINGE SC SCH (23:59)
[2018-09-24] MEDS: Acetaminophen 325 MG TAB PO PRN (00:23)
[2018-09-24] MEDS: Enoxaparin Sodium 100 MG/ML SYRINGE SC SCH (01:39)
[2018-09-24] MEDS: Levothyroxine Sodium 50 MCG TAB PO SCH (05:44)
[2018-09-24] MEDS: Benzonatate 100 MG CAP PO PRN ×2 (05:46→11:18)
[2018-09-24 06:02] LABS: ALT (SGPT) 19 U/L (8-55); AST (SGOT) 45 U/L (5-34); Albumin 2.6 g/dL (3.4-4.8); Alkaline Phosphatase 62 U/L (40-150); Anion Gap 12 mmol/L (10-20); BUN (Urea Nitrogen) 32 mg/dL (9.8-20.1); Bilirubin, Total 0.2 mg/dL (0.2-1.2); Calc. Creatinine Clearance 56 mL/min (70-130); Calcium 8.9 mg/dL (7.8-10.44); Carbon Dioxide 30 mmol/L (23-31); Chloride 99 mmol/L (98-107); Estimated GFR-MDRD 51; Globulin 2.8 g/dL (2.4-3.5); Glucose 83 mg/dL (83-110); Potassium 3.3 mmol/L (3.5-5.1); Protein, Total 5.4 g/dL (6.0-8.3); Sodium 138 mmol/L (136-145)
[2018-09-24 06:16] LABS: #Eosinphils 0.3 thou/uL (0.0-0.7); #Lymphocytes 1.1 thou/uL (1.20-3.40); #Monocytes 0.7 thou/uL (0.11-0.59); #Neutrophils 5.3 thou/uL (1.40-6.50); %Basophils 0.2 % (0.0-1.0); %Eosinophils 3.5 % (0.0-10.0); %Lymphocytes 14.3 % (21.0-51.0); %Monocytes 9.7 % (0.0-10.0); %Neutrophils 72.2 % (42.0-75.0); Hemoglobin 10.1 g/dL (12.0-16.0); Mean Corpuscular HGB CONC 32.5 g/dL (32.0-36.0); Mean Corpuscular Hemoglobin 32.1 pg (27.0-31.0); Mean Corpuscular Volume 98.9 fL (78.0-98.0); Mean Platelet Volume 7.9 fL (7.4-10.4); Platelet Count 271 thou/uL (130-400); RBC Distribution Width 12.8 % (11.5-14.5); Red Blood Cell (RBC) Count 3.15 mill/uL (4.20-5.40); White Blood Cell (WBC) Count 7.3 thou/uL (4.8-10.8)
[2018-09-24] MEDS: Saccharomyces boulardii 250 MG CAP PO SCH (09:06)
[2018-09-24] MEDS: Aspirin 81 mg Enteric Coated Tablet PO SCH (09:07)
[2018-09-24] MEDS: Donepezil HCl 10 MG TAB PO SCH (09:07)
[2018-09-24] MEDS: Cefepime 2 GM in Sodium Chloride 0.9% 100 ML IVPB SCH (11:18)
--- NOTE | 2018-09-24 14:00 | PDOC.PN ---
- Subjective Encounter Start Date: 09/24/18 Encounter Start Time: 09:15 Subjective: sob is better, no c/o palp now -: no chest pain -: responds well to verbal questions - Objective Resuscitation Status - Order Detail: 09/23/18 12:14 Resuscitation Status Routine Resuscitation Status: DNAR: NO Resuscitation Discussed with: discussed with son MAHESH Reviewed: Yes Vital Signs & Weight: Vital Signs (12 hours) Temp Pulse Pulse Pulse Resp BP BP 09/24/18 11:10 75 77 137/64 156/65 H 09/24/18 11:02 75 24 H 09/24/18 08:00 09/24/18 07:16 09/24/18 07:14 73 32 H 09/24/18 07:00 98.9 F 70 17 09/24/18 03:17 99.5 F 75 16 09/24/18 02:35 BP Pulse Ox Pulse Ox Pulse Ox 09/24/18 11:10 100 98 09/24/18 11:02 95 09/24/18 08:00 100 09/24/18 07:16 100 09/24/18 07:14 100 09/24/18 07:00 128/60 100 09/24/18 03:17 155/66 H 98 09/24/18 02:35 93 L Weight Weight 208 lb 11.2 oz I&O: 09/23/18 09/24/18 09/25/18 06:59 06:59 06:59 Intake Total 200 540 Output Total 400 560 Balance -200 -20 Result Diagrams: 09/24/18 04:54 09/24/18 04:54 Phys Exam - Physical Examination HEENT: PERRLA, moist MMs Neck: no JVD, supple Respiratory: no wheezing, no rales Cardiovascular: no significant murmur, irregular Gastrointestinal: soft, non-tender, positive bowel sounds Musculoskeletal: no edema, pulses present Neurological: non-focal, moves all 4 limbs Dx/Plan (1) Afib Code(s): I48.91 - UNSPECIFIED ATRIAL FIBRILLATION Status: Acute (2) Acute kidney injury Code(s): N17.9 - ACUTE KIDNEY FAILURE, UNSPECIFIED Status: Acute (3) Community acquired bacterial pneumonia Code(s): J15.9 - UNSPECIFIED BACTERIAL PNEUMONIA Status: Acute Comment: right LL (4) Type [address] elevation Code(s): I21.A1 - MYOCARDIAL INFARCTION TYPE 2 Status: Acute (5) Alzheimer's dementia Code(s): G30.9 - ALZHEIMER'S DISEASE, UNSPECIFIED; F02.80 - DEMENTIA IN OTH DISEASES CLASSD ELSWHR W/O BEHAVRL DISTURB Status: Chronic Qualifiers: Alzheimer's disease onset: unspecified onset Dementia behavioral disturbance: without behavioral disturbance Qualified Code(s): G30.9 - Alzheimer's disease, unspecified; F02.80 - Dementia in other diseases classified elsewhere without behavioral disturbance (6) Anxiety and depression Code(s): F41.9 - ANXIETY DISORDER, UNSPECIFIED; F32.9 - MAJOR DEPRESSIVE DISORDER, SINGLE EPISODE, UNSPECIFIED Status: Chronic (7) CAD (coronary artery disease) Code(s): I25.10 - ATHSCL HEART DISEASE OF [place] CORONARY ARTERY W/O ANG PCTRS Status: Chronic Qualifiers: Coronary Disease-Associated Artery/Lesion type: [place] artery [place] vs. transplanted heart: [place] heart Associated angina: without angina Qualified Code(s): I25.10 - Atherosclerotic heart disease of [place] coronary artery without angina pectoris (8) Chronic stage c diastolic heart failure Code(s): I50.32 - CHRONIC DIASTOLIC (CONGESTIVE) HEART FAILURE Status: Chronic (9) H/O cardiac pacemaker Code(s): Z95.0 - PRESENCE OF CARDIAC PACEMAKER Status: Chronic (10) Chronic anemia Code(s): D64.9 - ANEMIA, UNSPECIFIED Status: Chronic - Plan off cardizem drip, is on toprol xl, cardizem 30mg tid, lovenox -: continue asp, zocor, ranexa, zoloft and depakote -: nebs, levaquin and cefepime for pna -: mobilize as tolerated, will need swing bed for dc plan -: replace potassium, echo * . Review of Systems - Medications/Allergies Allergies/Adverse Reactions: Allergies Allergy/AdvReac Type Severity Reaction Status Date / Time codeine Allergy Verified 07/27/18 13:22 fluconazole Allergy Verified 07/27/18 13:22 Sulfa (Sulfonamide Allergy Verified 08/02/18 11:29 Antibiotics) Medications: Current Medications Acetaminophen (Tylenol) 650 mg PO Q4H PRN PRN Reason: Headache/Fever or Pain Stop: 09/26/18 03:45 Last Admin: 09/24/18 00:23 Dose: 650 mg Albuterol Sulfate (Proventil Hfa) 1 puff INH Q4H PRN PRN Reason: Wheezing Albuterol/Ipratropium (Duoneb) 3 ml NEB [id number] [facility] Last Admin: 09/24/18 11:02 Dose: 3 ml Alprazolam (Xanax) 0.25 mg PO TID PRN PRN Reason: Anxiety Last Admin: 09/23/18 21:06 Dose: 0.25 mg Artificial Tears (Tears Naturale) 2 drop EA EYE PRN PRN PRN Reason: Dry Eyes Aspirin (Ecotrin) 81 mg PO DAILY [facility] Last Admin: 09/24/18 09:07 Dose: 81 mg Benzonatate (Tessalon) 100 mg PO Q4H PRN PRN Reason: Cough Last Admin: 09/24/18 11:18 Dose: 100 mg Bisacodyl (Dulcolax) 10 mg [place] DAILYPRN PRN PRN Reason: Constipation Divalproex Sodium (Depakote Er) 500 mg PO HS [facility] Last Admin: 09/23/18 21:05 Dose: 500 mg Donepezil HCl (Aricept) 10 mg PO DAILY [facility] Last Admin: 09/24/18 09:07 Dose: 10 mg Enoxaparin Sodium (Lovenox) 90 mg SC Q24HR [facility] Last Admin: 09/24/18 01:39 Dose: Not Given Guaifenesin (Robitussin Sf) 200 mg PO Q4H PRN PRN Reason: Cough Last Admin: 09/24/18 00:23 Dose: 200 mg Hydralazine HCl (Apresoline) 10 mg SLOW IVP Q4H PRN PRN Reason: SBP > 180 and HR < 70 Cefepime HCl 2 gm/ Sodium (Chloride) 100 mls @ 200 mls/hr IVPB 1200,2359 [facility] Last Admin: 09/24/18 11:18 Dose: 100 mls Levofloxacin 500 mg/ Device 100 mls @ 100 mls/hr IVPB 0800 [facility] Last Admin: 09/24/18 09:09 Dose: 100 mls Diltiazem HCl 125 mg/ Sodium (Chloride) 125 mls @ 5 mls/hr IVPB INF [facility]; Protocol Last Admin: 09/23/18 23:26 Dose: 125 mls Levothyroxine Sodium (Synthroid) 50 mcg PO 0600 [facility] Last Admin: 09/24/18 05:44 Dose: 50 mcg Loperamide HCl (Imodium) 2 mg PO PRN PRN PRN Reason: Diarrhea/Loose Stools Loratadine (Claritin) 10 mg PO DAILYPRN PRN PRN Reason: Sinus Symptoms Metoprolol Succinate (Toprol Xl) 25 mg PO DAILY [facility] Last Admin: 09/24/18 09:06 Dose: 25 mg Mineral Oil/White Petrolatum (Eucerin Cream) 0 gm TOP BIDPRN PRN PRN Reason: Dry Skin Ondansetron HCl (Zofran) 4 mg IVP Q6H PRN PRN Reason: Nausea/Vomiting Stop: 09/27/18 03:45 Ondansetron HCl (Zofran Odt) 4 mg SL Q6H PRN PRN Reason: Nausea/Vomiting Stop: 09/26/18 03:45 Potassium Chloride (K-Dur) 40 meq PO BID-[facility] Stop: 09/26/18 08:01 Ranolazine (Ranexa) 500 mg PO BID [facility] Last Admin: 09/24/18 09:06 Dose: 500 mg Saccharomyces Boulardii (Florastor) 250 mg PO DAILY [facility] Last Admin: 09/24/18 09:06 Dose: 250 mg Senna/Docusate Sodium (Senokot S) 2 tab PO BID PRN PRN Reason: Constipation Sertraline HCl (Zoloft) 100 mg PO DAILY [facility] Last Admin: 09/24/18 09:06 Dose: 100 mg Simvastatin (Zocor) 10 mg PO [facility] Last Admin: 09/23/18 21:06 Dose: 10 mg Sodium Chloride ([place] Nasal [place] 0.65%) 0 ml EA NARE QIDPRN PRN PRN Reason: Nasal Congestion Throat Lozenges (Cepastat Lozenges) 1 ehlam PO Q2H PRN PRN Reason: Sore Throat Zolpidem Tartrate (Ambien) 5 mg PO HSPRN PRN PRN Reason: Insomnia
[2018-09-24] MEDS: Potassium Chloride 20 MEQ TAB PO SCH (16:59)
[2018-09-24] MEDS: Simvastatin 5 MG TAB PO SCH (21:12)
--- NOTE | 2018-09-24 22:54 | CON ---
DATE OF CONSULTATION: HISTORY OF PRESENT ILLNESS: Torrie Garrido is an 88-year-old white female who has followed with Dr. Maguire for many years. She has had previous CABG as well as pacemaker placement. She has significant dementia. She now is admitted with increased shortness of breath. She denied any chest discomfort. She denies any PND. PAST MEDICAL HISTORY: Hypertension, dyslipidemia, dementia, and hypothyroidism. OPERATIONS: Hysterectomy and CABG as well as pacemaker placement. MEDICATIONS: 1. Albuterol nebs q.4 hours p.r.n. 2. Xanax 0.25 t.i.d. p.r.n. 3. Amlodipine 5 mg daily. 4. Aspirin 81 daily. 5. Depakote 500 at bedtime. 6. Aricept 10 mg daily. 7. Synthroid 50 mcg daily. 8. Milk of magnesia daily. 9. Metoprolol 25 mg daily. 10. Pravachol 20 mg q.p.m. 11. Ranexa 500 mg b.i.d. 12. Sertraline 100 mg daily. 13. Tramadol. ALLERGIES: CODEINE, FLUCONAZOLE, AND SULFA. REVIEW OF SYSTEMS: Unobtainable due to the patient's dementia. PHYSICAL EXAMINATION: VITAL SIGNS: 155/67, pulse of 80. CHEST: Reveals expiratory wheezing. CARDIOVASCULAR: S1, S2 normal without any S3, S4, or murmurs. ABDOMEN: Normal bowel sounds without tenderness or organomegaly. ABDOMEN: Obese. EXTREMITIES: Revealed no edema. IMAGING STUDIES: EKG, on admission, revealed atrial pacing. In general, she has been atrial paced and sometimes AV paced, but then at times she will have paroxysmals of atrial fibrillation with rates in the 130s and 140s. LABORATORY DATA: Hemoglobin 10.1, hematocrit 31.2, white count 7300, platelets 271,000. Sodium 138, potassium 3.3, chloride 99, carbon dioxide 30, BUN 32, creatinine 1.03. Troponin I 0.091. BNP 897.1. IMPRESSION: 1. Increased shortness of breath, multifactorial. 2. Paroxysmal atrial fibrillation with fast ventricular response at times. 3. Dementia. 4. Status post coronary artery bypass graft. 5. Status post pacemaker placement. 6. Hypertension. 7. Hypercholesterolemia. 8. Hypothyroidism. PLAN: Echocardiogram will be performed to reassess left ventricular function. [facility] will be performed to see how much atrial fibrillation she has and how long the episodes last. With her dementia, it seemed like she would not be a very good candidate for chronic anticoagulation, although she may be a candidate for suppressive therapy. Job ID: [id number]
[2018-09-25] MEDS: Enoxaparin Sodium 100 MG/ML SYRINGE SC SCH ×2 (00:05→23:53)
[2018-09-25] MEDS: Cefepime 2 GM in Sodium Chloride 0.9% 100 ML IVPB SCH ×2 (00:05→12:11)
[2018-09-25 05:32] LABS: Hemoglobin 9.7 g/dL (12.0-16.0); Platelet Count 276 thou/uL (130-400)
[2018-09-25] MEDS: Levothyroxine Sodium 50 MCG TAB PO SCH (05:51)
[2018-09-25 08:16] LABS: Anion Gap 12 mmol/L (10-20); BUN (Urea Nitrogen) 21 mg/dL (9.8-20.1); Calc. Creatinine Clearance 72 mL/min (70-130); Calcium 8.9 mg/dL (7.8-10.44); Carbon Dioxide 27 mmol/L (23-31); Chloride 103 mmol/L (98-107); Estimated GFR-MDRD 67; Glucose 77 mg/dL (83-110); Potassium 4.2 mmol/L (3.5-5.1); Sodium 138 mmol/L (136-145)
[2018-09-25] MEDS: Potassium Chloride 20 MEQ TAB PO SCH ×2 (09:11→17:02)
[2018-09-25] MEDS: Aspirin 81 mg Enteric Coated Tablet PO SCH (09:11)
[2018-09-25] MEDS: Saccharomyces boulardii 250 MG CAP PO SCH (09:13)
[2018-09-25] MEDS: Donepezil HCl 10 MG TAB PO SCH (09:13)
--- NOTE | 2018-09-25 13:00 | PDOC.PN ---
- Subjective Encounter Start Date: 09/25/18 Encounter Start Time: 08:30 Subjective: awake, has cough, no sob -: says she slept well last night -: no chest pain or palp - Objective Resuscitation Status - Order Detail: 09/23/18 12:14 Resuscitation Status Routine Resuscitation Status: DNAR: NO Resuscitation Discussed with: discussed with son MAHESH Reviewed: Yes Vital Signs & Weight: Vital Signs (12 hours) Temp Pulse Pulse Resp BP BP Pulse Ox 09/25/18 11:00 98.1 F 72 19 155/69 H 09/25/18 10:55 74 16 90 L 09/25/18 09:17 75 186/75 H 09/25/18 08:00 95 09/25/18 07:00 97.4 F L 70 17 180/72 H 92 L 09/25/18 06:58 72 16 90 L 09/25/18 03:31 96 09/25/18 03:30 96 09/25/18 03:25 98.6 F 78 18 150/64 H 98 Weight Weight 208 lb 11.2 oz I&O: 09/24/18 09/25/18 09/26/18 06:59 06:59 06:59 Intake Total 540 1120 Output Total 560 Balance -20 1120 Result Diagrams: 09/25/18 04:42 09/25/18 04:42 Phys Exam - Physical Examination HEENT: PERRLA, moist MMs Neck: no JVD, supple Respiratory: no wheezing, no rales rhonchi+ Cardiovascular: no significant murmur, irregular Gastrointestinal: soft, non-tender, positive bowel sounds Musculoskeletal: no edema, pulses present Neurological: non-focal, moves all 4 limbs responds well to verbal questions Dx/Plan (1) Community acquired bacterial pneumonia Code(s): J15.9 - UNSPECIFIED BACTERIAL PNEUMONIA Status: Acute Comment: right LL (2) Afib Code(s): I48.91 - UNSPECIFIED ATRIAL FIBRILLATION Status: Acute Comment: rate controlled (3) Acute kidney injury Code(s): N17.9 - ACUTE KIDNEY FAILURE, UNSPECIFIED Status: Resolved (4) Type [address] elevation Code(s): I21.A1 - MYOCARDIAL INFARCTION TYPE 2 Status: Acute (5) Alzheimer's dementia Code(s): G30.9 - ALZHEIMER'S DISEASE, UNSPECIFIED; F02.80 - DEMENTIA IN OTH DISEASES CLASSD ELSWHR W/O BEHAVRL DISTURB Status: Chronic Qualifiers: Alzheimer's disease onset: unspecified onset Dementia behavioral disturbance: without behavioral disturbance Qualified Code(s): G30.9 - Alzheimer's disease, unspecified; F02.80 - Dementia in other diseases classified elsewhere without behavioral disturbance (6) Anxiety and depression Code(s): F41.9 - ANXIETY DISORDER, UNSPECIFIED; F32.9 - MAJOR DEPRESSIVE DISORDER, SINGLE EPISODE, UNSPECIFIED Status: Chronic (7) CAD (coronary artery disease) Code(s): I25.10 - ATHSCL HEART DISEASE OF [place] CORONARY ARTERY W/O ANG PCTRS Status: Chronic Qualifiers: Coronary Disease-Associated Artery/Lesion type: [place] artery [place] vs. transplanted heart: [place] heart Associated angina: without angina Qualified Code(s): I25.10 - Atherosclerotic heart disease of [place] coronary artery without angina pectoris (8) Chronic stage c diastolic heart failure Code(s): I50.32 - CHRONIC DIASTOLIC (CONGESTIVE) HEART FAILURE Status: Chronic (9) H/O cardiac pacemaker Code(s): Z95.0 - PRESENCE OF CARDIAC PACEMAKER Status: Chronic (10) Chronic anemia Code(s): D64.9 - ANEMIA, UNSPECIFIED Status: Chronic - Plan is on cefepime and levaquin will switch to omnicef -: continue nebs, asp, zocor, toprol xl, ranexa -: mobilize oob to chair and amb as tolerated -: cxr today, likely dc plan in 24hrs -: is on full dose lovenox, pt is not steady on her feet/risk of fall? * . Review of Systems - Medications/Allergies Allergies/Adverse Reactions: Allergies Allergy/AdvReac Type Severity Reaction Status Date / Time codeine Allergy Verified 07/27/18 13:22 fluconazole Allergy Verified 07/27/18 13:22 Sulfa (Sulfonamide Allergy Verified 08/02/18 11:29 Antibiotics) Medications: Current Medications Acetaminophen (Tylenol) 650 mg PO Q4H PRN PRN Reason: Headache/Fever or Pain Stop: 09/26/18 03:45 Last Admin: 09/24/18 00:23 Dose: 650 mg Albuterol Sulfate (Proventil Hfa) 1 puff INH Q4H PRN PRN Reason: Wheezing Albuterol/Ipratropium (Duoneb) 3 ml NEB [id number] [facility]CLUDES [facility] Last Admin: 09/25/18 10:55 Dose: 3 ml Alprazolam (Xanax) 0.25 mg PO TID PRN PRN Reason: Anxiety Last Admin: 09/23/18 21:06 Dose: 0.25 mg Artificial Tears (Tears Naturale) 2 drop EA EYE PRN PRN PRN Reason: Dry Eyes Aspirin (Ecotrin) 81 mg PO DAILY [facility] Last Admin: 09/25/18 09:11 Dose: 81 mg Benzonatate (Tessalon) 100 mg PO Q4H PRN PRN Reason: Cough Last Admin: 09/24/18 11:18 Dose: 100 mg Bisacodyl (Dulcolax) 10 mg [place] DAILYPRN PRN PRN Reason: Constipation Divalproex Sodium (Depakote Er) 500 mg PO HS [facility] Last Admin: 09/24/18 21:10 Dose: 500 mg Donepezil HCl (Aricept) 10 mg PO DAILY [facility] Last Admin: 09/25/18 09:13 Dose: 10 mg Enoxaparin Sodium (Lovenox) 90 mg SC Q24HR [facility] Last Admin: 09/25/18 00:05 Dose: 90 mg Guaifenesin (Robitussin Sf) 200 mg PO Q4H PRN PRN Reason: Cough Last Admin: 09/24/18 00:23 Dose: 200 mg Hydralazine HCl (Apresoline) 10 mg SLOW IVP Q4H PRN PRN Reason: SBP > 180 and HR < 70 Cefepime HCl 2 gm/ Sodium (Chloride) 100 mls @ 200 mls/hr IVPB 1200,2359 [facility] Last Admin: 09/25/18 12:11 Dose: 100 mls Levofloxacin 500 mg/ Device 100 mls @ 100 mls/hr IVPB 0800 [facility] Last Admin: 09/25/18 09:15 Dose: 100 mls Levothyroxine Sodium (Synthroid) 50 mcg PO 0600 [facility] Last Admin: 09/25/18 05:51 Dose: 50 mcg Loperamide HCl (Imodium) 2 mg PO PRN PRN PRN Reason: Diarrhea/Loose Stools Loratadine (Claritin) 10 mg PO DAILYPRN PRN PRN Reason: Sinus Symptoms Metoprolol Succinate (Toprol Xl) 50 mg PO DAILY [facility] Last Admin: 09/25/18 09:14 Dose: 50 mg Mineral Oil/White Petrolatum (Eucerin Cream) 0 gm TOP BIDPRN PRN PRN Reason: Dry Skin Ondansetron HCl (Zofran) 4 mg IVP Q6H PRN PRN Reason: Nausea/Vomiting Stop: 09/27/18 03:45 Ondansetron HCl (Zofran Odt) 4 mg SL Q6H PRN PRN Reason: Nausea/Vomiting Stop: 09/26/18 03:45 Potassium Chloride (K-Dur) 40 meq PO BID-[facility] Stop: 09/26/18 08:01 Last Admin: 09/25/18 09:11 Dose: 40 meq Ranolazine (Ranexa) 500 mg PO BID [facility] Last Admin: 09/25/18 09:13 Dose: 500 mg Saccharomyces Boulardii (Florastor) 250 mg PO DAILY [facility] Last Admin: 09/25/18 09:13 Dose: 250 mg Senna/Docusate Sodium (Senokot S) 2 tab PO BID PRN PRN Reason: Constipation Sertraline HCl (Zoloft) 100 mg PO DAILY [facility] Last Admin: 09/25/18 09:12 Dose: 100 mg Simvastatin (Zocor) 10 mg PO [facility] Last Admin: 09/24/18 21:12 Dose: 10 mg Sodium Chloride ([place] Nasal [place] 0.65%) 0 ml EA NARE QIDPRN PRN PRN Reason: Nasal Congestion Throat Lozenges (Cepastat Lozenges) 1 elham PO Q2H PRN PRN Reason: Sore Throat Zolpidem Tartrate (Ambien) 5 mg PO HSPRN PRN PRN Reason: Insomnia
--- NOTE | 2018-09-25 13:34 | RAD ---
XR Chest 1 View Portable History: [Chest pain. Follow-up. Pneumonia.] Comparison: Radiograph 3 days prior Findings: Interval improvement lower lobe airspace opacity. There is mild pulmonary edema. No pneumot horax. Small right effusion. No acute osseous abnormality. Impression: Interval improvement right lower lobe pneumonia.
[2018-09-25] MEDS: Simvastatin 5 MG TAB PO SCH (20:57)
[2018-09-25] MEDS: Cefdinir 300 MG CAP PO SCH (20:57)
[2018-09-26] MEDS: Levothyroxine Sodium 50 MCG TAB PO SCH (05:28)
[2018-09-26 05:34] LABS: Anion Gap 13 mmol/L (10-20); BUN (Urea Nitrogen) 13 mg/dL (9.8-20.1); Calc. Creatinine Clearance 73 mL/min (70-130); Carbon Dioxide 30 mmol/L (23-31); Chloride 100 mmol/L (98-107); Estimated GFR-MDRD 68; Glucose 76 mg/dL (83-110); Potassium 4.7 mmol/L (3.5-5.1); Sodium 138 mmol/L (136-145)
[2018-09-26] MEDS: Potassium Chloride 20 MEQ TAB PO SCH (08:30)
[2018-09-26] MEDS: Aspirin 81 mg Enteric Coated Tablet PO SCH (08:34)
[2018-09-26] MEDS: Cefdinir 300 MG CAP PO SCH ×2 (08:35→19:58)
[2018-09-26] MEDS: Donepezil HCl 10 MG TAB PO SCH (08:35)
[2018-09-26] MEDS: Saccharomyces boulardii 250 MG CAP PO SCH (08:37)
--- NOTE | 2018-09-26 11:52 | PDOC.PN ---
- Subjective Encounter Start Date: 09/26/18 Encounter Start Time: 08:00 Subjective: awake, had 2 episodes of diarrhea this am and 3 overnight -: no abd pain or sob -: no c/o palp or chest pain, she didn't feel like eating breakfast - Objective Resuscitation Status - Order Detail: 09/23/18 12:14 Resuscitation Status Routine Resuscitation Status: DNAR: NO Resuscitation Discussed with: discussed with son MAHESH Reviewed: Yes Vital Signs & Weight: Vital Signs (12 hours) Temp Pulse Resp BP Pulse Ox 09/26/18 10:31 73 16 98 09/26/18 07:36 98.2 F 78 24 H 149/66 H 97 09/26/18 07:35 97 09/26/18 06:46 95 09/26/18 06:44 74 16 95 09/26/18 04:00 98.1 F 66 18 175/74 H 92 L 09/26/18 00:00 98.2 F 77 20 164/71 H 100 Weight Weight 208 lb 6.4 oz I&O: 09/25/18 09/26/18 09/27/18 06:59 06:59 06:59 Intake Total 1120 480 Output Total 1420 Balance 1120 -940 Result Diagrams: 09/25/18 04:42 09/26/18 04:50 Phys Exam - Physical Examination HEENT: PERRLA, moist MMs Neck: no JVD, supple Respiratory: no wheezing, no rales Cardiovascular: RRR, no significant murmur Gastrointestinal: soft, non-tender, positive bowel sounds Musculoskeletal: no edema, pulses present Neurological: non-focal, moves all 4 limbs Psychiatric: A&O x 3 Dx/Plan (1) Community acquired bacterial pneumonia Code(s): J15.9 - UNSPECIFIED BACTERIAL PNEUMONIA Status: Acute Comment: right LL (2) Afib Code(s): I48.91 - UNSPECIFIED ATRIAL FIBRILLATION Status: Acute Qualifiers: Atrial fibrillation type: paroxysmal Qualified Code(s): I48.0 - Paroxysmal atrial fibrillation Comment: rate controlled (3) Acute kidney injury Code(s): N17.9 - ACUTE KIDNEY FAILURE, UNSPECIFIED Status: Resolved (4) Type [address] elevation Code(s): I21.A1 - MYOCARDIAL INFARCTION TYPE 2 Status: Acute (5) Alzheimer's dementia Code(s): G30.9 - ALZHEIMER'S DISEASE, UNSPECIFIED; F02.80 - DEMENTIA IN OTH DISEASES CLASSD ELSWHR W/O BEHAVRL DISTURB Status: Chronic Qualifiers: Alzheimer's disease onset: unspecified onset Dementia behavioral disturbance: without behavioral disturbance Qualified Code(s): G30.9 - Alzheimer's disease, unspecified; F02.80 - Dementia in other diseases classified elsewhere without behavioral disturbance (6) Anxiety and depression Code(s): F41.9 - ANXIETY DISORDER, UNSPECIFIED; F32.9 - MAJOR DEPRESSIVE DISORDER, SINGLE EPISODE, UNSPECIFIED Status: Chronic (7) CAD (coronary artery disease) Code(s): I25.10 - ATHSCL HEART DISEASE OF [place] CORONARY ARTERY W/O ANG PCTRS Status: Chronic Qualifiers: Coronary Disease-Associated Artery/Lesion type: [place] artery [place] vs. transplanted heart: [place] heart Associated angina: without angina Qualified Code(s): I25.10 - Atherosclerotic heart disease of [place] coronary artery without angina pectoris (8) Chronic stage c diastolic heart failure Code(s): I50.32 - CHRONIC DIASTOLIC (CONGESTIVE) HEART FAILURE Status: Chronic (9) H/O cardiac pacemaker Code(s): Z95.0 - PRESENCE OF CARDIAC PACEMAKER Status: Chronic (10) Chronic anemia Code(s): D64.9 - ANEMIA, UNSPECIFIED Status: Chronic - Plan is on omnicef, will check stool for c.diff -: she has been initiated on multaq by -: continue toprol xl 50mg daily, zocor, aspirin, is off anticoagulation-fall -: -risk, continue ranexa, depakote and zoloft -: PT to mobilize as tolerated, has amb around 20ft * . DC plan when diarrhea settles down and cardio clearance. Review of Systems - Medications/Allergies Allergies/Adverse Reactions: Allergies Allergy/AdvReac Type Severity Reaction Status Date / Time codeine Allergy Verified 07/27/18 13:22 fluconazole Allergy Verified 07/27/18 13:22 Sulfa (Sulfonamide Allergy Verified 08/02/18 11:29 Antibiotics) Medications: Current Medications Albuterol Sulfate (Proventil Hfa) 1 puff INH Q4H PRN PRN Reason: Wheezing Albuterol/Ipratropium (Duoneb) 3 ml NEB QID-RT [facility] Last Admin: 09/26/18 10:31 Dose: 3 ml Alprazolam (Xanax) 0.25 mg PO TID PRN PRN Reason: Anxiety Last Admin: 09/23/18 21:06 Dose: 0.25 mg Artificial Tears (Tears Naturale) 2 drop EA EYE PRN PRN PRN Reason: Dry Eyes Aspirin (Ecotrin) 81 mg PO DAILY [facility] Last Admin: 09/26/18 08:34 Dose: 81 mg Benzonatate (Tessalon) 100 mg PO Q4H PRN PRN Reason: Cough Last Admin: 09/24/18 11:18 Dose: 100 mg Bisacodyl (Dulcolax) 10 mg [place] DAILYPRN PRN PRN Reason: Constipation Cefdinir (Omnicef) 300 mg PO BID [facility] Last Admin: 09/26/18 08:35 Dose: 300 mg Divalproex Sodium (Depakote Er) 500 mg PO [facility] Last Admin: 09/25/18 20:56 Dose: 500 mg Donepezil HCl (Aricept) 10 mg PO DAILY [facility] Last Admin: 09/26/18 08:35 Dose: 10 mg Dronedarone (Multaq) 400 mg PO BID-[facility] Guaifenesin (Robitussin Sf) 200 mg PO Q4H PRN PRN Reason: Cough Last Admin: 09/24/18 00:23 Dose: 200 mg Hydralazine HCl (Apresoline) 10 mg SLOW IVP Q4H PRN PRN Reason: SBP > 180 and HR < 70 Levothyroxine Sodium (Synthroid) 50 mcg PO 0600 [facility] Last Admin: 09/26/18 05:28 Dose: 50 mcg Loperamide HCl (Imodium) 2 mg PO PRN PRN PRN Reason: Diarrhea/Loose Stools Loratadine (Claritin) 10 mg PO DAILYPRN PRN PRN Reason: Sinus Symptoms Metoprolol Succinate (Toprol Xl) 50 mg PO DAILY [facility] Last Admin: 09/26/18 08:36 Dose: 50 mg Mineral Oil/White Petrolatum (Eucerin Cream) 0 gm TOP BIDPRN PRN PRN Reason: Dry Skin Ondansetron HCl (Zofran) 4 mg IVP Q6H PRN PRN Reason: Nausea/Vomiting Stop: 09/27/18 03:45 Ranolazine (Ranexa) 500 mg PO BID [facility] Last Admin: 09/26/18 08:36 Dose: 500 mg Saccharomyces Boulardii (Florastor) 250 mg PO DAILY [facility] Last Admin: 09/26/18 08:37 Dose: 250 mg Senna/Docusate Sodium (Senokot S) 2 tab PO BID PRN PRN Reason: Constipation Sertraline HCl (Zoloft) 100 mg PO DAILY [facility] Last Admin: 09/26/18 08:37 Dose: 100 mg Simvastatin (Zocor) 10 mg PO HS [facility] Last Admin: 09/25/18 20:57 Dose: 10 mg Sodium Chloride ([place] Nasal [place] 0.65%) 0 ml EA NARE QIDPRN PRN PRN Reason: Nasal Congestion Throat Lozenges (Cepastat Lozenges) 1 elham PO Q2H PRN PRN Reason: Sore Throat Zolpidem Tartrate (Ambien) 5 mg PO HSPRN PRN PRN Reason: Insomnia
[2018-09-26 13:24] VITALS: BMI 31.6
[2018-09-26] MEDS: Dronedarone HCl 400 MG TAB PO SCH (17:30)
[2018-09-26] MEDS: Simvastatin 5 MG TAB PO SCH (19:58)
[2018-09-26] MEDS: ALPRAZolam 0.25 MG TAB PO PRN (20:01)
[2018-09-26] MEDS: Benzonatate 100 MG CAP PO PRN (20:05)
[2018-09-27] MEDS: Levothyroxine Sodium 50 MCG TAB PO SCH (05:53)
[2018-09-27 06:23] LABS: Hemoglobin 11.5 g/dL (12.0-16.0); Platelet Count 291 thou/uL (130-400)
[2018-09-27 06:51] LABS: Anion Gap 12 mmol/L (10-20); BUN (Urea Nitrogen) 11 mg/dL (9.8-20.1); Calc. Creatinine Clearance 73 mL/min (70-130); Calcium 9.1 mg/dL (7.8-10.44); Carbon Dioxide 29 mmol/L (23-31); Chloride 99 mmol/L (98-107); Estimated GFR-MDRD 69; Glucose 70 mg/dL (83-110); Potassium 4.4 mmol/L (3.5-5.1); Sodium 136 mmol/L (136-145)
[2018-09-27] MEDS: Cefdinir 300 MG CAP PO SCH (08:54)
[2018-09-27] MEDS: Donepezil HCl 10 MG TAB PO SCH (08:54)
[2018-09-27] MEDS: Aspirin 81 mg Enteric Coated Tablet PO SCH (08:55)
[2018-09-27] MEDS: Saccharomyces boulardii 250 MG CAP PO SCH (08:55)
[2018-09-27] MEDS: Dronedarone HCl 400 MG TAB PO SCH (08:55)
--- NOTE | 2018-09-27 14:08 | PDOC.PN ---
- Subjective Encounter Start Date: 09/27/18 Encounter Start Time: 08:00 Subjective: no abd pain, diarrhea is better -: has cough, no fever - Objective Resuscitation Status - Order Detail: 09/23/18 12:14 Resuscitation Status Routine Resuscitation Status: DNAR: NO Resuscitation Discussed with: discussed with son MAHESH Reviewed: Yes Vital Signs & Weight: Vital Signs (12 hours) Temp Pulse Resp BP Pulse Ox 09/27/18 11:32 97.8 F 73 18 150/65 H 97 09/27/18 11:10 78 16 09/27/18 07:40 98 F 70 20 176/73 H 94 L 09/27/18 07:38 99 09/27/18 07:36 70 16 99 09/27/18 03:40 98.4 F 72 20 166/98 H 98 Weight Admit Weight 207 lb 4.8 oz Weight 208 lb 6.4 oz I&O: 09/26/18 09/27/18 09/28/18 06:59 06:59 06:59 Intake Total 480 440 Output Total 1420 700 Balance -940 -260 Result Diagrams: 09/27/18 05:08 09/27/18 05:08 Phys Exam - Physical Examination HEENT: PERRLA, moist MMs Neck: no JVD, supple Respiratory: no wheezing, no rales rhonchi+ Cardiovascular: RRR, no significant murmur Gastrointestinal: soft, non-tender, positive bowel sounds Musculoskeletal: no edema, pulses present Neurological: non-focal, moves all 4 limbs Dx/Plan (1) Community acquired bacterial pneumonia Code(s): J15.9 - UNSPECIFIED BACTERIAL PNEUMONIA Status: Acute Comment: right LL (2) Afib Code(s): I48.91 - UNSPECIFIED ATRIAL FIBRILLATION Status: Acute Qualifiers: Atrial fibrillation type: paroxysmal Qualified Code(s): I48.0 - Paroxysmal atrial fibrillation Comment: rate controlled (3) Acute kidney injury Code(s): N17.9 - ACUTE KIDNEY FAILURE, UNSPECIFIED Status: Resolved (4) Type [address] elevation Code(s): I21.A1 - MYOCARDIAL INFARCTION TYPE 2 Status: Acute (5) Alzheimer's dementia Code(s): G30.9 - ALZHEIMER'S DISEASE, UNSPECIFIED; F02.80 - DEMENTIA IN OTH DISEASES CLASSD ELSWHR W/O BEHAVRL DISTURB Status: Chronic Qualifiers: Alzheimer's disease onset: unspecified onset Dementia behavioral disturbance: without behavioral disturbance Qualified Code(s): G30.9 - Alzheimer's disease, unspecified; F02.80 - Dementia in other diseases classified elsewhere without behavioral disturbance (6) Anxiety and depression Code(s): F41.9 - ANXIETY DISORDER, UNSPECIFIED; F32.9 - MAJOR DEPRESSIVE DISORDER, SINGLE EPISODE, UNSPECIFIED Status: Chronic (7) CAD (coronary artery disease) Code(s): I25.10 - ATHSCL HEART DISEASE OF [place] CORONARY ARTERY W/O ANG PCTRS Status: Chronic Qualifiers: Coronary Disease-Associated Artery/Lesion type: [place] artery [place] vs. transplanted heart: [place] heart Associated angina: without angina Qualified Code(s): I25.10 - Atherosclerotic heart disease of [place] coronary artery without angina pectoris (8) Chronic stage c diastolic heart failure Code(s): I50.32 - CHRONIC DIASTOLIC (CONGESTIVE) HEART FAILURE Status: Chronic (9) H/O cardiac pacemaker Code(s): Z95.0 - PRESENCE OF CARDIAC PACEMAKER Status: Chronic (10) Chronic anemia Code(s): D64.9 - ANEMIA, UNSPECIFIED Status: Chronic - Plan hemostable -: diarrhea freq has come down, c.diff is -ve -: continue omnicef, nebs, multaq and asp -: dc pt to snf, has been cleared by -: room air spo2 around 91% * . Review of Systems - Medications/Allergies Allergies/Adverse Reactions: Allergies Allergy/AdvReac Type Severity Reaction Status Date / Time codeine Allergy Verified 07/27/18 13:22 fluconazole Allergy Verified 07/27/18 13:22 Sulfa (Sulfonamide Allergy Verified 08/02/18 11:29 Antibiotics) Medications: Current Medications Albuterol Sulfate (Proventil Hfa) 1 puff INH Q4H PRN PRN Reason: Wheezing Albuterol/Ipratropium (Duoneb) 3 ml NEB QID-RT CHUY Last Admin: 09/27/18 11:10 Dose: 3 ml Alprazolam (Xanax) 0.25 mg PO TID PRN PRN Reason: Anxiety Last Admin: 09/26/18 20:01 Dose: 0.25 mg Artificial Tears (Tears Naturale) 2 drop EA EYE PRN PRN PRN Reason: Dry Eyes Aspirin (Ecotrin) 81 mg PO DAILY [facility] Last Admin: 09/27/18 08:55 Dose: 81 mg Benzonatate (Tessalon) 100 mg PO Q4H PRN PRN Reason: Cough Last Admin: 09/26/18 20:05 Dose: 100 mg Bisacodyl (Dulcolax) 10 mg [place] DAILYPRN PRN PRN Reason: Constipation Cefdinir (Omnicef) 300 mg PO BID [facility] Last Admin: 09/27/18 08:54 Dose: 300 mg Divalproex Sodium (Depakote Er) 500 mg PO HS [facility] Last Admin: 09/26/18 19:59 Dose: 500 mg Donepezil HCl (Aricept) 10 mg PO DAILY [facility] Last Admin: 09/27/18 08:54 Dose: 10 mg Dronedarone (Multaq) 400 mg PO BID-[facility] Last Admin: 09/27/18 08:55 Dose: 400 mg Guaifenesin (Robitussin Sf) 200 mg PO Q4H PRN PRN Reason: Cough Last Admin: 09/24/18 00:23 Dose: 200 mg Hydralazine HCl (Apresoline) 10 mg SLOW IVP Q4H PRN PRN Reason: SBP > 180 and HR < 70 Levothyroxine Sodium (Synthroid) 50 mcg PO 0600 [facility] Last Admin: 09/27/18 05:53 Dose: 50 mcg Loperamide HCl (Imodium) 2 mg PO PRN PRN PRN Reason: Diarrhea/Loose Stools Loratadine (Claritin) 10 mg PO DAILYPRN PRN PRN Reason: Sinus Symptoms Metoprolol Succinate (Toprol Xl) 50 mg PO DAILY [facility] Last Admin: 09/27/18 08:54 Dose: 50 mg Mineral Oil/White Petrolatum (Eucerin Cream) 0 gm TOP BIDPRN PRN PRN Reason: Dry Skin Ranolazine (Ranexa) 500 mg PO BID [facility] Last Admin: 09/27/18 08:55 Dose: 500 mg Saccharomyces Boulardii (Florastor) 250 mg PO DAILY [facility] Last Admin: 09/27/18 08:55 Dose: 250 mg Senna/Docusate Sodium (Senokot S) 2 tab PO BID PRN PRN Reason: Constipation Sertraline HCl (Zoloft) 100 mg PO DAILY [facility] Last Admin: 09/27/18 08:55 Dose: 100 mg Simvastatin (Zocor) 10 mg PO HS [facility] Last Admin: 09/26/18 19:58 Dose: 10 mg Sodium Chloride ([place] Nasal [place] 0.65%) 0 ml EA NARE QIDPRN PRN PRN Reason: Nasal Congestion Throat Lozenges (Cepastat Lozenges) 1 elham PO Q2H PRN PRN Reason: Sore Throat Zolpidem Tartrate (Ambien) 5 mg PO HSPRN PRN PRN Reason: Insomnia
[2018-09-27 15:15] VITALS: BP 147/65; TEMP 97.7
--- NOTE | 2018-09-28 13:41 | DIS ---
DATE OF ADMISSION: 09/22/2018 DATE OF DISCHARGE: 09/27/2018 DISCHARGE DISPOSITION: To [facility]. PRIMARY DISCHARGE DIAGNOSES: Community-acquired bacterial pneumonia in the right lower lobe, resolving; atrial fibrillation with rapid ventricular response, which is rate controlled; acute kidney injury on admission, resolved; type 2 [place], which is resolved; chronic dementia; anxiety; depression; coronary artery disease; chronic stage C diastolic dysfunction with heart failure; history of cardiac pacemaker; chronic anemia. PROCEDURES DONE DURING HOSPITALIZATION: Chest x-ray done on the day of admission showed right basilar pneumonia. Echo with 2D Doppler showed ejection fraction of 55% to 60%, moderately dilated left atrium. Diastolic dysfunction was seen. Mild to moderate tricuspid regurgitation was seen. Blood cultures x2, no growth. Stool for C diff x1 on the was negative. H and H 11 and 35, platelet count 291, MCV is 98. Discharge BUN and creatinine are 11 and 0.7. Albumin is 2.6. BNP 897. Troponin I was indeterminate, peaking up to 0.09, CK-MB 1.0. Initial BUN and creatinine were 38 and 1.3. DISCHARGE MEDICATIONS: 1. Xanax 0.25 mg p.o. three times daily p.r.n. 2. Albuterol inhaler q.4 hourly p.r.n. 3. Aspirin 81 mg p.o. daily. 4. Pravachol 20 mg p.o. q.p.m. 5. Ranexa 500 mg p.o. twice daily. 6. Synthroid 50 mcg p.o. daily. 7. Aricept 10 mg p.o. daily. 8. Depakote extended release 500 mg p.o. at bedtime. 9. Zoloft 100 mg p.o. daily. 10. Omnicef 300 mg p.o. twice daily for another 3 days. 11. Multaq 400 mg p.o. twice daily. 12. DuoNeb 4 times daily. 13. Toprol-XL 50 mg p.o. daily. 14. Florastor 250 mg p.o. daily for another 10 days. ALLERGIES: ALLERGIC TO CODEINE, FLUCONAZOLE, AND SULFA. DISCHARGE PLAN: The patient to follow up with Dr. Maguire as advised and primary care physician in 1 week. BRIEF COURSE DURING HOSPITALIZATION: The patient initially was sent from [facility] for complaints of shortness of breath. The patient was also confused. Her initial workup revealed right lower lobe community-acquired pneumonia. She was placed on antibiotics and had huerta cultures obtained. She also had acute kidney injury. Her troponin was indeterminate, likely non-ST elevation type 2. During the course of her stay here, the patient also had atrial fibrillation with RVR and had Cardiology consultation with Dr. Nuñez and Dr. Maguire. Her medications were optimized. No anticoagulation was given due to risk of falls and bleed. She was placed on Multaq and close monitoring was done on telemetry for the last 36 hours with no untoward arrhythmia seen. Prior to discharge, the patient has some dry coughing spells, but otherwise she is hemodynamically stable. She has been afebrile for the last 4 days during her stay here. She has started to mobilize a bit and ambulating nearly 20 feet prior to discharge. She is tolerating oral solid diet. A total of 40 minutes was spent on discharge plan. Please see a [id number] documentation for the day of discharge on [employer]. Job ID: [id number]
== END 2018-09-27 16:00 | DRG 280 ==
LOC: ERS 13:53 → 2NO 15:56
PROVIDERS: ADMIT Internal Medicine; ATTEND Internal Medicine
DX: I21.4 Non-ST elevation (NSTEMI) myocardial infarction (principal); J15.9 Unspecified bacterial pneumonia; N17.9 Acute kidney failure, unspecified; I50.32 Chronic diastolic (congestive) heart failure; Z66 Do not resuscitate; D53.9 Nutritional anemia, unspecified; I48.0 Paroxysmal atrial fibrillation; F41.9 Anxiety disorder, unspecified; E78.00 Pure hypercholesterolemia, unspecified; G30.9 Alzheimer's disease, unspecified; F32.9 Major depressive disorder, single episode, unspecified; F02.80 Dementia in other diseases classified elsewhere, unspecified severity, without behavioral disturbance, psychotic disturbance, mood disturbance, and anxiety; E03.9 Hypothyroidism, unspecified; E66.9 Obesity, unspecified; I70.1 Atherosclerosis of renal artery; I11.0 Hypertensive heart disease with heart failure; Z86.79 Personal history of other diseases of the circulatory system; Z79.899 Other long term (current) drug therapy; Z95.0 Presence of cardiac pacemaker; Z88.5 Allergy status to narcotic agent; Z88.8 Allergy status to other drugs, medicaments and biological substances; Z95.1 Presence of aortocoronary bypass graft; Z88.2 Allergy status to sulfonamides; Z68.31 Body mass index [BMI] 31.0-31.9, adult
CPT/HCPCS: 36415; 71045; 80048; 80053; 82553; 82565; 83690; 83880; 84484; 85014; 85018; 85025; 85049; 87040; 87324; 87449; 90471; 90670; 93005; 93306; 94640; 96365; 96367; 96375; G0009; J0360; J0456; J0692; J0696; J1650; J1940; J1956; J2405; J3490; J7050; J7620

== ENCOUNTER 2018-11-05 11:50 | Emergency (ER) | payer MEDICARE ==
[~2018-11-05 11:50] MED LIST: ISOVUE-370 76%-LOCM 1 ML ONE
--- NOTE | 2018-11-05 12:18 | CT ---
CT Head without IV contrast COMPARISON: 07/27/2018 HISTORY: Altered mental status. Level 2 stroke. TECHNIQUE: Axial CT imaging at 5 mm intervals from vertex through skull base without contrast FINDINGS: There is no evidence of an acute infarction, hemorrhage, mass effect, or midline shift. There is decr eased attenuation seen in the periventricular white matter which is nonspecific but likely attributable to chronic small vessel ischemic changes. There is mild cerebral volume loss. The ventri cular system is normal in size, shape, and position for the degree of sulcal atrophy. Visualized paranasal sinuses are clear. Osseous structures appear intact. CT of the head is stable when compared to prior exam. IMPRESSION: 1. No acute intracranial abnormality demonstrated. 2. Stable chronic small vessel ischemic changes and cerebral volume loss. 3. Above findings discussed with Dr. López in the emergency department on 11/05/2018 at 1215 hours.
--- NOTE | 2018-11-05 12:41 | CT ---
EXAM: CTA Angio Head W WO Con PROVIDED CLINICAL HISTORY: Altered mental status COMPARISON: None FINDINGS: There is a normal three-vessel configuration of the great vessels at the arch. There is heavily calcified stenosis at the origin of the left internal carotid artery, with minimal r esidual luminal diameter of about 1.5 mm. This compares to the more normal luminal diameter of the distal left ICA about 5 mm. The common carotid, right internal carotid, clavian and vertebral arterie s demonstrate no evidence for significant stenosis. There is no evidence for focal vessel stenosis, branch occlusion or aneurysm involving the intracrani al circulation. There is smooth long segment moderate narrowing of the midportion of the basilar artery. Prominent calcification involves the internal carotid arteries in the region of the cavernous sinus. IMPRESSION: 1. High-grade left proximal ICA stenosis. 2. No acute findings involving the intracranial circulation.
--- NOTE | 2018-11-05 13:03 | RAD ---
EXAM: Portable chest PROVIDED CLINICAL HISTORY: Altered mental status COMPARISON: 09/25/2018 FINDINGS: Lungs are hypoinflated. Mediastinum appear stable. Median sternotomy changes and left subclavian card iac pacing device redemonstrated. No focal consolidation, pleural fluid or pneumothorax evident. IMPRESSION: No evidence for an acute cardiopulmonary process.
[2018-11-05 13:10] LABS: Bilirubin Negative (Negative); Blood, Urine Trace (Negative); Clarity CLEAR (Clear); Glucose, Urine (Dipstick) Negative (Negative); Leukocyte Small (Negative); Nitrite Negative (Negative); Protein, Urine (Dipstick) Negative (Neg-Trace); Urobilinogen 0.2 mg/dL (0.2-1.0)
[2018-11-05 13:11] LABS: #Eosinphils 0.1 thou/uL (0.0-0.7); #Lymphocytes 1.3 thou/uL (1.20-3.40); #Monocytes 0.6 thou/uL (0.11-0.59); #Neutrophils 4.3 thou/uL (1.40-6.50); %Basophils 0.3 % (0.0-1.0); %Eosinophils 1.6 % (0.0-10.0); %Lymphocytes 20.3 % (21.0-51.0); %Neutrophils 68.8 % (42.0-75.0); Hemoglobin 11.2 g/dL (12.0-16.0); Mean Corpuscular HGB CONC 33.5 g/dL (32.0-36.0); Mean Corpuscular Volume 98.6 fL (78.0-98.0); Mean Platelet Volume 7.7 fL (7.4-10.4); Platelet Count 183 thou/uL (130-400); RBC Distribution Width 12.5 % (11.5-14.5); Red Blood Cell (RBC) Count 3.39 mill/uL (4.20-5.40); White Blood Cell (WBC) Count 6.2 thou/uL (4.8-10.8)
[2018-11-05 13:12] LABS: Bacteria/HPF None Seen HPF (None Seen)
[2018-11-05 13:14] LABS: Pathc Cast-AUWi Flag 2.85 (0-2.49); Sperm-AUWi Flag 206.7 (0-9.9); Yeast-AUWi Flag 262.9 (0-25.0)
[2018-11-05 13:22] LABS: Hyaline Casts/LPF 0-3 HYALINE CAST LPF (0-3 Hyaline); Manual Microscopic Reviewed? No Path Casts Seen; Renal Epithelial None Seen HPF (0-3); Sperm/HPF None Seen HPF (None Seen); Yeast-All Forms 1+ HPF (None Seen)
[2018-11-05 13:34] LABS: ALT (SGPT) Less than 7 U/L (8-55); AST (SGOT) 10 U/L (5-34); Albumin 3.1 g/dL (3.4-4.8); Alkaline Phosphatase 44 U/L (40-150); Anion Gap 13 mmol/L (10-20); BUN (Urea Nitrogen) 10 mg/dL (9.8-20.1); Bilirubin, Total 0.4 mg/dL (0.2-1.2); Calc. Creatinine Clearance 0 mL/min (70-130); Calcium 8.6 mg/dL (7.8-10.44); Carbon Dioxide 25 mmol/L (23-31); Chloride 96 mmol/L (98-107); Estimated GFR-MDRD 58; Globulin 2.3 g/dL (2.4-3.5); Glucose 108 mg/dL (83-110); Potassium 3.7 mmol/L (3.5-5.1); Protein, Total 5.4 g/dL (6.0-8.3); Sodium 130 mmol/L (136-145)
[2018-11-05] MEDS ORDERED: cefTRIAXone\\ROCEPHIN 2 GM VIAL ONE (14:57)
[2018-11-05] MEDS ORDERED: Sodium Chloride 0.9% 100 ML ONE (14:57)
--- NOTE | 2018-11-10 09:42 | EKG ---
Test Reason : Blood Pressure : / mmHG Vent. Rate : 072 BPM Atrial Rate : 072 BPM P-R Int : 234 ms QRS Dur : 094 ms QT Int : 454 ms P-R-T Axes : -25 023 051 degrees QTc Int : 497 ms Atrial-paced rhythm with prolonged AV conduction Prolonged QT Abnormal ECG Confirmed by ALINE NOLAN MD ([id number]), general expeditor ASAEL JUAREZ ([id number]) on 11/10/2018 9:41:39 AM Referred By: Confirmed By:ALINE NOLAN MD
--- NOTE | 2018-11-10 10:59 | CT ---
"PRELIMINARY REPORT" EXAM: CTA Angio Head W WO Con CTA Angio Neck W WO Con PROVIDED CLINICAL HISTORY: Altered mental status COMPARISON: None FINDINGS: There is a normal three-vessel configuration of the great vessels at the arch. There is heavily calcified stenosis at the origin of the left internal carotid artery, with minimal r esidual luminal diameter of about 1.5 mm. This compares to the more normal luminal diameter of the distal left ICA about 5 mm. The common carotid, right internal carotid, clavian and vertebral arterie s demonstrate no evidence for significant stenosis. There is no evidence for focal vessel stenosis, branch occlusion or aneurysm involving the intracrani al circulation. There is smooth long segment moderate narrowing of the midportion of the basilar artery. Prominent calcification involves the internal carotid arteries in the region of the cavernous sinus. IMPRESSION: 1. High-grade left proximal ICA stenosis. 2. No acute findings involving the intracranial circulation. Transcribed Date/Time: 11/10/2018 10:59 AM
== END 2018-11-05 16:30 ==
LOC: ERS 11:50
DX: N39.0 Urinary tract infection, site not specified (principal); E86.0 Dehydration; R41.82 Altered mental status, unspecified; I10 Essential (primary) hypertension; E78.5 Hyperlipidemia, unspecified; F03.90 Unspecified dementia, unspecified severity, without behavioral disturbance, psychotic disturbance, mood disturbance, and anxiety; F41.9 Anxiety disorder, unspecified; F32.9 Major depressive disorder, single episode, unspecified; Z79.899 Other long term (current) drug therapy
CPT/HCPCS: 36415; 36416; 51701; 70450; 70496; 70498; 71045; 80053; 81003; 81015; 83605; 84443; 84484; 85025; 87040; 87086; 93005; 94760; 96361; 96365; A4353; J0696; J3490; Q9966

== ENCOUNTER 2018-11-17 15:59 | Emergency (ER) | payer MEDICARE ==
--- NOTE | 2018-11-17 17:01 | RAD ---
PORTABLE AP CHEST: 11/17/18 INDICATION: Mental status change. COMPARISON: Comparison made to films of 11/05/18 and 09/25/18. Interstitial prominence in both lung bases appear stable. No focal infiltrate or significant effusion . Heart size is normal. Postop sternotomy change again noted with transvenous pacemaker leads. IMPRESSION: No evidence of acute process. POS: OFF
== END 2018-11-17 19:26 | disposition home or self-care (01) ==
LOC: ERS 15:59
DX: R45.1 Restlessness and agitation (principal); F03.90 Unspecified dementia, unspecified severity, without behavioral disturbance, psychotic disturbance, mood disturbance, and anxiety; F41.9 Anxiety disorder, unspecified; F32.9 Major depressive disorder, single episode, unspecified
CPT/HCPCS: 36416; 71045